=== PATIENT | male | born 1945 | race Caucasian/White ===

== ENCOUNTER 2018-07-20 14:35 | Inpatient (IN) ==
--- NOTE | 2018-07-20 17:42 | ED ---
HPI General Chief Complaint: Recheck/Abnormal Lab/Rx Stated Complaint: Doctor sent medical Time Seen by Provider: 07/20/18 16:50 Source: patient and family Mode of arrival: ambulatory Limitations: no limitations History of Present Illness HPI narrative: 73-year-old male presents for referral of abnormal CT and jaundice. He does not know the CT results. He states he has been having abdominal pain and bloating over the past couple weeks. He states that his urine is also been dark colored. He denies other specific complaints. complaint: abnormal lab Returns today for: called because of abnormal lab/test Symptoms since prior visit: worsening pain Context: called for abnormal lab result Associated symptoms: none Related Data Home Medications Medication Instructions Recorded Confirmed allopurinol 100 mg PO DAILY 07/20/18 07/20/18 aspirin [Aspirin Low Dose] 81 mg PO DAILY 07/20/18 07/20/18 indomethacin 25 mg PO DAILY PRN 07/20/18 07/20/18 lisinopril 40 mg PO DAILY 07/20/18 07/20/18 lovastatin 40 mg PO DAILY 07/20/18 07/20/18 Allergies Allergy/AdvReac Type Severity Reaction Status Date / Time Penicillins Allergy Generalized Verified 07/20/18 17:07 Rash Review of Systems ROS: all other systems reviewed are negative [facility] Medical History Medical History Gout (Acute) Hypercholesteremia (Acute) Hypertension (Acute) Surgical History Surgical History No history of previous surgery (Acute) Social History Social History Substance History: No History of Abuse Second Hand Smoke Exposure: No Smoking Status: Never smoker How Often Do You Have a Drink Containing Alcohol: 2 to 4 times a month Recent Travel in [facility] within the Last 8 Weeks: No Recent Out of Country Travel within the Last 8 Weeks: No Immunization History Tetanus Immunization: <5 Years Hx Influenza Vaccine This Season: No Exam Narrative Exam Narrative: GENERAL: 73 y/o female in no apparent distress SKIN: Focused skin assessment warm/dry. HEAD: Atraumatic. Normocephalic. EYES: Pupils equal and round. No scleral icterus. No injection or drainage. ENT: No nasal bleeding or discharge. Mucous membranes pink and moist. NECK: Trachea midline. No JVD. CARDIOVASCULAR: Regular rate and rhythm. RESPIRATORY: No accessory muscle use. Clear to auscultation. Breath sounds equal bilaterally. GASTROINTESTINAL: Abdomen soft, mild ttp diffusely, nondistended. MUSCULOSKELETAL: No obvious deformities. No clubbing. No cyanosis. NEUROLOGICAL: Awake and alert. Motor grossly within normal limits. Normal speech. PSYCHIATRIC: Appropriate mood and affect; insight and judgment normal. Course Reevaluation(s) Reevaluation #1: CT report shows intra-hepatic biliary duct dilatation with concern for possible biliary duct neoplasm and need for MRI, this was ordered and patient updated and will admit for further care Consultations Consultation #1: dr nj agrees to admit Initial Documented Vital Signs Temperature 97.9 F 07/20/18 14:43 Pulse Rate 72 07/20/18 14:43 Respiratory Rate 14 07/20/18 14:43 Blood Pressure 152/70 H 07/20/18 14:43 Pulse Oximetry 96 07/20/18 14:43 Last Documented Vital Signs Temperature 97.9 F 07/20/18 14:43 Pulse Rate 55 L 07/20/18 14:59 Respiratory Rate 16 07/20/18 14:59 Blood Pressure 165/74 H 07/20/18 14:59 Pulse Oximetry 99 07/20/18 14:59 Medical Decision Making [facility] Narrative Medical decision making narrative: will obtain ct report and recheck labs Medical Screen Exam Complete: Yes Emergency Medical Condition: Yes Differential Diagnosis Differential Diagnosis: Gallstone pancreatitis, biliary duct neoplasm, choledocholithiasis Lab Data Lab results reviewed: Yes I reviewed the patient's lab results. Result diagrams: 07/20/18 17:25 07/20/18 17:25 Lab Results 07/20/18 07/20/18 Range/Units 17:25 17:25 WBC 4.2 (4.0-11.0) th/mm3 RBC 4.09 L (4.50-5.90) mil/mm3 Hgb 13.9 (13.0-17.0) gm/dL Hct 41.5 (39.0-51.0) % MCV 101.3 H (80.0-100.0) fL MCH 34.1 H (27.0-34.0) pg MCHC 33.6 (32.0-36.0) % RDW 15.3 (11.6-17.2) % Plt Count 225 (150-450) th/mm3 MPV 9.4 (7.0-11.0) fL Neut % (Auto) 51.9 (16.0-70.0) % Lymph % (Auto) 33.9 (9.0-44.0) % Major % (Auto) 12.1 H (0.0-8.0) % Eos % (Auto) 1.5 (0.0-4.0) % Baso % (Auto) 0.6 (0.0-2.0) % Neut # (Auto) 2.2 (1.8-7.7) th/mm3 Lymph # (Auto) 1.4 (1.0-4.8) th/mm3 Major # (Auto) 0.5 (0.0-0.9) th/mm3 Eos # (Auto) 0.1 (0.0-0.4) th/mm3 Baso # (Auto) 0.0 (0.0-0.2) th/mm3 WBC Differential . Differential Comment Auto diff final Sodium 140 (136-145) meq/L Potassium 4.7 (3.5-5.1) meq/L Chloride 106 (98-107) meq/L Carbon Dioxide 24.1 (21.0-32.0) meq/L Anion Gap 10 (5-15) meq/L BUN 16 (7-18) mg/dL Creatinine 0.98 (0.60-1.30) mg/dL Estimated GFR 75 L (>89) mL/min Random Glucose 90 (74-106) mg/dL Calcium 8.6 (8.5-10.1) mg/dL Total Bilirubin 3.1 H (0.2-1.0) mg/dL AST 249 H (15-37) U/L ALT 507 H (12-78) U/L Alkaline Phosphatase 708 H (45-117) U/L Total Protein 7.6 (6.4-8.2) g/dL Albumin 3.7 (3.4-5.0) g/dL Lipase 239 (73-393) U/L Discharge Plan Discharge Disposition Patient Disposition: 30 Still Patient Discharge Condition Condition: Stable Discharge Details Diagnosis: Dilated intrahepatic bile duct, Elevated LFTs, Abdominal pain Physicians Team ED Provider: Neva Ocampo Primary Care Provider: Salvador Pedroza Attending Provider: Taiwo Nj Discharge Interventions Interventions: Vital Signs Last Done: 07/20/18 14:59 Status ED Status: Admitted Patient
[2018-07-20 17:53] LABS: Baso % (Auto) 0.6 % (0.0-2.0); Eos # (Auto) 0.1 th/mm3 (0.0-0.4); Eos % (Auto) 1.5 % (0.0-4.0); Hematocrit 41.5 % (39.0-51.0); Hemoglobin 13.9 gm/dL (13.0-17.0); Lymph # (Auto) 1.4 th/mm3 (1.0-4.8); Lymph % (Auto) 33.9 % (9.0-44.0); Mean Corpuscular HGB Conc 33.6 % (32.0-36.0); Mean Corpuscular Hemoglobin 34.1 pg (27.0-34.0); Mean Corpuscular Volume 101.3 fL (80.0-100.0); Mean Platelet Volume 9.4 fL (7.0-11.0); Mono # (Auto) 0.5 th/mm3 (0.0-0.9); Mono % (Auto) 12.1 % (0.0-8.0); Neut # (Auto) 2.2 th/mm3 (1.8-7.7); Neut % (Auto) 51.9 % (16.0-70.0); Platelet Count 225 th/mm3 (150-450); Red Blood Count 4.09 mil/mm3 (4.50-5.90); Red Cell Distribution Width 15.3 % (11.6-17.2); White Blood Count 4.2 th/mm3 (4.0-11.0)
[2018-07-20 18:21] LABS: Alkaline Phosphatase 708 U/L (45-117); Total Protein 7.6 g/dL (6.4-8.2)
[2018-07-20 18:24] LABS: Alanine Aminotransferase 507 U/L (12-78); Albumin 3.7 g/dL (3.4-5.0); Anion Gap 10 meq/L (5-15); Aspartate Aminotransferase 249 U/L (15-37); Blood Urea Nitrogen 16 mg/dL (7-18); Calcium 8.6 mg/dL (8.5-10.1); Carbon Dioxide 24.1 meq/L (21.0-32.0); Chloride 106 meq/L (98-107); Glomerular Filtration Rate 75 mL/min (>89); Glucose,Random 90 mg/dL (74-106); Lipase 239 U/L (73-393); Potassium 4.7 meq/L (3.5-5.1); Sodium 140 meq/L (136-145)
--- NOTE | 2018-07-20 18:29 | P.HPIM ---
History of Present Illness Primary Care Physician: Salvador Pedroza Chief Complaint: abdominal distension, abnormal abdominal CT History of Present Illness: Patient is a pleasant 73-year-old male who has been experiencing abdominal bloating and abdominal pain for the last 2 weeks. Pt had abnormal LFT panel 07/15/18 with Total Bilirubin 1.6, direct bilirubin 0.7 , alk phos 539, AST 421, and ALT 661. This prompted his PCP, Dr. Pedroza, to order CT A/P which was completed at [facility]. CT A/P showed intrahepatic biliary duct dilatation which terminates in the laz hepatis where there is soft tissue fullness. Further evaluation with MRI recommended to rule out biliary duct neoplasm. Atrophic left hepatic lobe also noted. Patient denied anorexia or weight loss. Patient denied fever or chills. Patient was sent to [facility]. [facility] PMH: - Basal Cell Carcinoma, s/p excision from pt's back - Gout - HTN - Hyperlipidemia PSH: - Excision of BCC from back FHX: - mother d/t esophageal CA - father d/t [place] SHX: - - no biologic children - former cigars smoker - etoh: 2-3 beers per week - denies illicit street drugs ALL: PCN - Diagnosis (1) Dilated intrahepatic bile duct (2) Elevated LFTs (3) Abdominal pain Inpatient Certification: I certify that the inpatient services were ordered in accordance with Medicare regulations governing the order. This includes certification that hospital inpatient services are reasonable and necessary and in the case of services not specified as inpatient-only under 42 CFR 419.22(n), that they are appropriately provided as inpatient services in accordance to with the 2-midnight benchmark under 43 CFR 412.3(e) Review of Systems Constitutional: Denies anorexia, Denies body ache(s), Denies chills, Denies fever(s), Denies night sweats, Denies poor appetite, Denies weight gain, Denies weight loss Eyes: Denies blind spots, Denies blurry vision, Denies change in vision, Denies double vision, Denies discharge, Denies loss of peripheral vision, Denies loss of vision, Denies other visual disturbances, Denies pain Ears, Nose, Mouth, and Throat: Denies bleeding gums, Denies difficulty swallowing, Denies dizziness, Denies headache(s), Denies hearing loss, Denies pain with swallowing, Denies poor balance, Denies ringing in the ears, Denies sore throat, Denies throat swelling, Denies tongue swelling Cardiovascular: Denies chest pain, Denies excessive sweating, Denies fainting, Denies fast heart rate, Denies generalized swelling, Denies irregular heart rhythm, Denies leg swelling, Denies lightheadedness, Denies slow heart rate Respiratory: Denies cough, Denies shortness of breath, Denies snoring, Denies wheezing Gastrointestinal: Reports abdominal pain, Reports bloating, Denies belching, Denies black, tarry stools, Denies bright, red blood in stools, Denies change in bowel habits, Denies change in stools, Denies coffee ground vomit, Denies constipation, Denies cramping, Denies difficulty swallowing, Denies heartburn, Denies incontinent of stools, Denies loose stools, Denies nausea, Denies pain with swallowing, Denies vomiting, Denies vomiting blood Genitourinary: Denies blood in urine, Denies difficulty urinating, Denies painful urination, Denies side pain, Denies frequent nighttime urination, Denies urinary frequency, Denies urinary hesitancy, Denies urinary incontinence , Denies urinary urgency Musculoskeletal: Denies abnormal walking, Denies back pain, Denies body aches, Denies decreased muscle mass, Denies joint pain, Denies joint swelling, Denies muscle weakness, Denies neck pain, Denies numbness, Denies stiffness, Denies tingling Skin/Breast: Denies bleeding lesions, Denies change in skin color, Denies changing lesions, Denies itching, Denies lesions, Denies new lesions, Denies non -healing lesions, Denies redness, Denies sensitivity to light, Denies rash, Denies skin pain, Denies skin swelling, Denies skin ulcer, Denies sores, Denies unusual bruising, Denies wounds, Denies yellowing of the skin Neurologic: Denies abnormal hearing, Denies abnormal movements, Denies abnormal speech, Denies abnormal walking, Denies behavioral changes, Denies burning sensations, Denies confusion, Denies dizziness, Denies fainting, Denies frequent falls, Denies headache(s), Denies lack of coordination, Denies localized weakness, Denies loss of vision, Denies memory loss, Denies numbness, Denies other visual disturbances, Denies radiating pain, Denies restless legs, Denies convulsions, Denies seizure-like activity, Denies sensory deficit, Denies tingling/numbness/burning sensations, Denies tremor(s), Denies unsteadiness, Denies weakness Psychiatric: Denies abnormal sleep pattern, Denies anxiety, Denies behavioral changes, Denies change in appetite, Denies confusion, Denies depression, Denies difficulty concentrating, Denies hearing things others do not hear, Denies irritability, Denies lack of enjoyment, Denies memory loss, Denies mood swings, Denies panic attacks, Denies paranoia, Denies seeing things others do not see, Denies thoughts of hurting/killing others, Denies thoughts of hurting/killing yourself Endocrine: Denies cold intolerance, Denies excessive sweating, Denies fatigue, Denies flushing, Denies heat intolerance, Denies increased hunger, Denies increased thirst, Denies increased urination, Denies rapid, pounding, or irregular heartbeat Hematologic/Lymphatic: Denies easy bleeding, Denies easy bruising, Denies enlarged lymph nodes Allergic/Immunologic: Denies hives, Denies lip swelling, Denies throat swelling , Denies wheezing PMFSH - History History Provided By: Patient - Medical History Medical History: Medical History (Last Reviewed 07/20/18 @ 17:38 by Neva Ocampo MD) Gout Hypercholesteremia Hypertension - Surgical History Surgical History: Surgical History (Last Reviewed 07/20/18 @ 17:38 by Neva Ocampo MD) No history of previous surgery - Tobacco History Second Hand Smoke Exposure: No Smoking Status: Never smoker - Alcohol History How Often Do You Have a Drink Containing Alcohol: 2 to 4 times a month - Substance Use History Substance History: No History of Abuse - Travel History Recent Travel in the [place] Within the Last 8 Weeks: No Recent Travel Out of the Country Within the Last 8 Weeks: No - Immunization History Tetanus Immunization: <5 Years Hx Influenza Vaccine This Season: No Medications and Allergies Active Medications: Active Medications Non-Formulary Medication (Lisinopril [Lisinopril]) 40 mg PO DAILY WOJCIECH Sodium Chloride (Ns Flush) 2 ml IV.FLUSH PRN PRN PRN Reason: FLUSH AFTER USING IV ACCESS Allergies Allergy/AdvReac Type Severity Reaction Status Date / Time Penicillins Allergy Generalized Verified 07/20/18 17:07 Rash Home Medications Medication Instructions Recorded Confirmed Type allopurinol 100 mg PO DAILY 07/20/18 07/20/18 History aspirin [Aspirin Low Dose] 81 mg PO DAILY 07/20/18 07/20/18 History indomethacin 25 mg PO DAILY PRN 07/20/18 07/20/18 History lisinopril 40 mg PO DAILY 07/20/18 07/20/18 History lovastatin 40 mg PO DAILY 07/20/18 07/20/18 History Exam Vital signs: Vital Signs 07/20/18 14:43 07/20/18 14:59 Temperature 97.9 F Pulse Rate 72 55 L Respiratory Rate 14 16 Blood Pressure 152/70 H 165/74 H Pulse Oximetry 96 99 Narrative: GENERAL: This is a well-nourished, well-developed patient, in no apparent distress. CARDIOVASCULAR: Regular rate and rhythm without murmurs, gallops, or rubs. RESPIRATORY: Clear to auscultation. Breath sounds equal bilaterally. No wheezes , rales, or rhonchi. GASTROINTESTINAL: Abdomen soft, non-tender, nondistended. Normal active bowel sounds MUSCULOSKELETAL: Extremities without clubbing, cyanosis, or edema. NEURO: Alert & Oriented x4 to person, place, time, situation. Moves all ext x4 Results - Labs CBC & Chem 7: 07/21/18 03:59 07/20/18 17:25 Labs: Liver Function 07/20/18 Range/Units 17:25 Total Bilirubin 3.1 H (0.2-1.0) mg/dL AST 249 H (15-37) U/L ALT 507 H (12-78) U/L Alkaline Phosphatase 708 H (45-117) U/L Albumin 3.7 (3.4-5.0) g/dL - Imaging Cholangiopancreatography MRI 07/20/18 00:00 1. Severe intrahepatic biliary ductal dilatation, primarily involving the left lobe. There is a focal cutoff of the intrahepatic ducts at the confluence in the laz hepatis region. Gap in the visualized biliary ducts in this region measures approximately 1 cm. This is suspicious for malignancy but no discrete mass is identified. 2. Common duct is normal diameter. No abnormal filling defects within the common duct. Caprini VTE Risk Assessment Caprini VTE Risk Assessment: Moderate/High Risk (score >= 2) Caprini Risk Assessment Model: Point Value = 1 Point Value = 2 Point Value = 3 Point Value = 5 Age 41-60 Minor surgery BMI > 25 kg/m2 Swollen legs Varicose veins or History of unexplained or recurrent spontaneous Oral contraceptives or hormone replacement Sepsis (< 1 month) Serious lung disease, including pneumonia (< 1 month) Abnormal pulmonary function Acute myocardial infarction Congestive heart failure (< 1 month) History of inflammatory bowel disease Medical patient at bed rest Age 61-74 Arthroscopic surgery Major open surgery (> 45 min) Laparoscopic surgery (> 45 min) Malignancy Confined to bed (> 72 hours) Immobilizing plaster cast Central venous access Age >= 75 History of VTE Family history of VTE Factor V Leiden Prothrombin [id number] Lupus anticoagulant Anticardiolipin antibodies Elevated serum homocysteine Heparin-induced thrombocytopenia Other congenital or acquired thrombophilia Stroke (< 1 month) Elective arthroplasty Hip, pelvis, or leg fracture Acute spinal cord injury (< 1 month) Prophylaxis Regimen: Total Risk Factor Score Risk Level Prophylaxis Regimen 0-1 Low Early ambulation 2 Moderate Order ONE of the following: *Sequential Compression Device (SCD) *Heparin 5000 units SQ BID 3-4 Higher Order ONE of the following medications: *Heparin 5000 units SQ TID *Enoxaparin/Lovenox 40 mg SQ daily (WT < 150 kg, CrCl > 30 mL/min) *Enoxaparin/Lovenox 30 mg SQ daily (WT < 150 kg, CrCl > 10-29 mL/min) *Enoxaparin/Lovenox 30 mg SQ BID (WT < 150 kg, CrCl > 30 mL/min) AND/OR *Sequential Compression Device (SCD) 5 or more Highest Order ONE of the following medications: *Heparin 5000 units SQ TID (Preferred with Epidurals) *Enoxaparin/Lovenox 40 mg SQ daily (WT < 150 kg, CrCl > 30 mL/min) *Enoxaparin/Lovenox 30 mg SQ daily (WT < 150 kg, CrCl > 10-29 mL/min) *Enoxaparin/Lovenox 30 mg SQ BID (WT < 150 kg, CrCl > 30 mL/min) AND *Sequential Compression Device (SCD) Assessment and Plan - Assessment (1) Dilated intrahepatic bile duct Code(s): K83.8 - Other specified diseases of biliary tract Status: Acute Plan: Patient is a pleasant 73-year-old male who has been experiencing abdominal bloating and abdominal pain for the last 2 weeks. Pt had abnormal LFT panel 07/15/18 with Total Bilirubin 1.6, direct bilirubin 0.7 , alk phos 539, AST 421, and ALT 661. This prompted his PCP, Dr. Pedroza, to order CT A/P which was completed at [facility]. Patient denied anorexia or weight loss. Patient denied fever or chills. Due to abnormal CT A/P patient was sent to [facility] for admission. CT A/P - intrahepatic biliary duct dilatation which terminates in the laz hepatis where there is soft tissue fullness. - Further evaluation with MRI recommended to rule out biliary duct neoplasm. - Atrophic left hepatic lobe also noted. MRCP (07/20/18) 1. Severe intrahepatic biliary ductal dilatation, primarily involving the left lobe. There is a focal cutoff of the intrahepatic ducts at the confluence in the laz hepatis region. Gap in the visualized biliary ducts in this region measures approximately 1 cm. This is suspicious for malignancy but no discrete mass is identified. 2. Common duct is normal diameter. No abnormal filling defects within the common duct. - Case d/w Gastroenterology, Dr. Doran. He will consult. - Pt will likely require ERCP to obtain biopsy of obstructing biliary process which is suspicious for cholangiocarcinoma. - DVT prophylaxis with SCDs - supportive care. 2) HTN - continue prinivil 3) Gout - continue allopurinol (2) Elevated LFTs Code(s): R94.5 - Abnormal results of liver function studies Status: Acute (3) Abdominal pain Code(s): R10.9 - Unspecified abdominal pain Status: Acute (3) Abdominal pain Qualifiers: Abdominal location: unspecified location Qualified Code(s): R10.9 - Unspecified abdominal pain
[2018-07-20] MEDS ORDERED: Bisacodyl 10 MG Supp RECTAL PRN (18:32)
[2018-07-20] MEDS ORDERED: Acetaminophen 325 MG Tablet PO PRN (18:32)
[2018-07-20] MEDS: Sod Chloride 0.9% Inj 1,000 ML IV.CONT SCH (18:53)
[2018-07-20] MEDS: Senna/Docusate Sodium 8.6/50 MG Tablet PO SCH (20:40)
--- NOTE | 2018-07-20 23:38 | MR ---
EXAM DATE: 07/20/2018 8:10 PM EDT AGE/SEX: 73 years / Male INDICATIONS: Abdominal pain. Jaundice. CLINICAL DATA: This is the patient's initial encounter. Patient reports that signs and symptoms have been present for 2 weeks and indicates a pain score of 4/10. MEDICAL/SURGICAL HISTORY: Hypertension. None. COMPARISON: TLI, CT ABDOMEN W AND W/O CONTRAST, 07/17/2018. . TECHNIQUE: Multiplanar, multisequence images of the abdomen were obtained without contrast including dedicated cholangiographic images. FINDINGS: Liver: Severe diffuse intrahepatic biliary ductal dilatation of the left lobe. A discrete mass is no t identified. Atrophic left lobe of the liver. Common Bile Duct: There is nonvisualization of the confluence of hepatic ducts at the laz hepatis with an approximately 1 cm gap between the visualized portion of the common duct and the visualized i ntrahepatic biliary ducts. Common duct diameter is 5 to 6 mm diffusely. No abnormal filling defects i dentified.. Gallbladder: Gallbladder is collapsed. No abnormal filling defects identified. Pancreas: The pancreas appears normal in signal with no focal parenchymal abnormalities. The pancrea tic duct is normal in caliber with no filling defects, or obstructing lesions identified. CONCLUSION: 1. Severe intrahepatic biliary ductal dilatation, primarily involving the left lobe. There is a foca l cutoff of the intrahepatic ducts at the confluence in the laz hepatis region. Gap in the visuali zed biliary ducts in this region measures approximately 1 cm. This is suspicious for malignancy but n o discrete mass is identified. 2. Common duct is normal diameter. No abnormal filling defects within the common duct. Electronically signed by: Bala Cisneros MD 07/20/2018 11:37 PM EDT
[2018-07-21] MEDS: Sod Chloride 0.9% Inj 1,000 ML IV.CONT SCH ×2 (05:59→15:54)
[2018-07-21 07:30] LABS: Baso % (Auto) 0.6 % (0.0-2.0); Eos # (Auto) 0.1 th/mm3 (0.0-0.4); Eos % (Auto) 1.9 % (0.0-4.0); Lymph # (Auto) 1.3 th/mm3 (1.0-4.8); Lymph % (Auto) 29.4 % (9.0-44.0); Mean Corpuscular HGB Conc 34.2 % (32.0-36.0); Mean Corpuscular Hemoglobin 34.3 pg (27.0-34.0); Mean Corpuscular Volume 100.4 fL (80.0-100.0); Mean Platelet Volume 9.9 fL (7.0-11.0); Mono # (Auto) 0.5 th/mm3 (0.0-0.9); Mono % (Auto) 12.2 % (0.0-8.0); Neut # (Auto) 2.5 th/mm3 (1.8-7.7); Neut % (Auto) 55.9 % (16.0-70.0); Platelet Count 192 th/mm3 (150-450); Red Blood Count 3.79 mil/mm3 (4.50-5.90); Red Cell Distribution Width 15.5 % (11.6-17.2); White Blood Count 4.4 th/mm3 (4.0-11.0)
[2018-07-21 07:58] LABS: Alanine Aminotransferase 456 U/L (12-78)
[2018-07-21 08:00] LABS: Alkaline Phosphatase 586 U/L (45-117); Total Protein 6.5 g/dL (6.4-8.2)
[2018-07-21 08:27] LABS: Albumin 3.2 g/dL (3.4-5.0); Anion Gap 8 meq/L (5-15); Aspartate Aminotransferase 282 U/L (15-37); Blood Urea Nitrogen 13 mg/dL (7-18); Calcium 8.5 mg/dL (8.5-10.1); Carbon Dioxide 21.8 meq/L (21.0-32.0); Chloride 110 meq/L (98-107); Glomerular Filtration Rate 84 mL/min (>89); Glucose,Random 79 mg/dL (74-106); Lipase 184 U/L (73-393); Potassium 4.3 meq/L (3.5-5.1); Sodium 140 meq/L (136-145)
[2018-07-21] MEDS: Lisinopril 20 MG Tablet PO SCH (09:25)
[2018-07-21] MEDS: Allopurinol 100 MG Tablet PO SCH (09:25)
[2018-07-21] MEDS: KCL 20 mEq/NACL 0.45% Inj 1,000 ML IV.CONT SCH ×2 (09:26→20:12)
[2018-07-21] MEDS: Senna/Docusate Sodium 8.6/50 MG Tablet PO SCH ×2 (09:26→20:12)
[2018-07-21] MEDS ORDERED: Succinylcholine Inj 100 MG/5 ML Syringe IV.PUSH ONE (11:25)
[2018-07-21] MEDS ORDERED: Phenylephrine/NS 1000 MCG/10ML Syringe IV.PUSH ONE (11:25)
[2018-07-21] MEDS ORDERED: Lidocaine PF 1% Inj 5 ML Syringe OTHER ONE (11:25)
--- NOTE | 2018-07-21 11:38 | P.CONGI ---
History of Present Illness Consult date: 07/21/18 Consult reason: Increased bilirubin, biliary ductal dilatation Chief complaint: Intrahepatic biliary duct dilatation, elevated History of Present Illness: This is a well-nourished 73-year-old male who came into the hospital on 2017 with symptoms of abdominal bloating and generalized abdominal pain for the past 3 weeks. Patient notes that his symptoms have worsened and he does note some tenderness in the mid abdomen and right upper quadrant. He did note some nausea during this period of time but no vomiting and had new onset of constipation for the past week. Patient has never seen gastroenterology and is never had a EGD or colonoscopy. Patient also notes some symptoms of dyspepsia off and on for the past year and noticed symptoms are worsened late at night. Aggregating factors could be related to his diet but pain was tolerable and functional so patient has been on no medications or had any workup. Patient noticed no obvious GI bleeding. Current labs show hemoglobin 13, bilirubin 3.1 , AST 249 ALT 507, alkaline phosphatase 708, lipase 239, and albumin 3.7. MRCP was performed on admission which showed severe intrahepatic biliary ductal dilatation primarily in the left lobe. There is a focal cut off the hepatic ducts in the portal hepatis region measuring up approximately 1 cm. This is suspicious for malignancy but no discrete mass is identified. Common bile duct normal diameter no abnormal filling defects. Gastroenterology was consulted to assist with these findings and a plan of care. <Jaycee Rose - Last Filed: 07/21/18 11:31> Review of Systems All other systems reviewed negative except as stated in HPI <Jaycee Rose - Last Filed: 07/21/18 11:31> PMFSH - History History Provided By: Patient - Medical History Medical History: Medical History (Last Reviewed 07/20/18 @ 17:38 by Neva Ocampo MD) Gout Hypercholesteremia Hypertension - Surgical History Surgical History: Surgical History (Last Reviewed 07/20/18 @ 17:38 by Neva Ocampo MD) No history of previous surgery - Tobacco History Second Hand Smoke Exposure: No Tobacco Use In Past 30 Days: No Smoking Status: Never smoker Tobacco Type: Cigars - Alcohol History How Often Do You Have a Drink Containing Alcohol: 2 to 4 times a month - Substance Use History Substance History: No History of Abuse - Travel History Recent Travel in the [facility] Within the Last 8 Weeks: No Recent Travel Out of the Country Within the Last 8 Weeks: No - Immunization History Tetanus Immunization: <5 Years Hx Influenza Vaccine This Season: No <Jaycee Rose - Last Filed: 07/21/18 11:31> - Medical History Medical History: Medical History (Last Reviewed 07/20/18 @ 17:38 by Neva Ocampo MD) Gout Hypercholesteremia Hypertension - Surgical History Surgical History: Surgical History (Last Reviewed 07/20/18 @ 17:38 by Neva Ocampo MD) No history of previous surgery <Kristan Doran - Last Filed: 07/21/18 16:05> Medications and Allergies Active Medications: Active Medications Acetaminophen (Tylenol) 650 mg PO Q4H PRN PRN Reason: Temp > 100.4 Al Hydroxide/Mg Hydroxide (Milk Of Magnesia Liq) 30 ml PO Q12H PRN PRN Reason: Mild Constipation Allopurinol (Zyloprim) 100 mg PO DAILY [facility] Last Admin: 07/21/18 09:25 Dose: 100 mg Bisacodyl (Dulcolax Supp) 10 mg RECTAL DAILY PRN PRN Reason: SEVERE CONSITIPATION Clonidine HCl (Catapres) 0.2 mg PO Q6H PRN PRN Reason: SBP>160, DBP>90 Enalaprilat (Vasotec Inj) 1.25 mg IV.PUSH Q6H PRN PRN Reason: SYS BP GREATER THAN 160 MMHG Sodium Chloride (Ns Inj) 1,000 mls @ 100 mls/hr IV.CONT .Q10H [facility] Last Infusion: 07/21/18 09:26 Dose: Infused Potassium Chloride/Sodium Chloride (Potassium Chlor 20 Meq/Nacl 0.45% Inj) 1, 000 mls @ 84 mls/hr IV.CONT .[id number] [facility] Last Admin: 07/21/18 09:26 Dose: 84 mls/hr Lactulose (Lactulose Liq) 30 ml PO DAILY PRN PRN Reason: SEVERE CONSITIPATION Lisinopril (Prinivil) 40 mg PO DAILY [facility] Last Admin: 07/21/18 09:25 Dose: 40 mg Ondansetron HCl (Zofran Inj) 4 mg IV.PUSH Q6H PRN PRN Reason: NAUSEA OR VOMITING Senna/Docusate Sodium (Rosalina-Colace) 1 tab PO BID [facility] Last Admin: 07/21/18 09:26 Dose: Not Given Sennosides (Senokot) 17.2 mg PO Q12H PRN PRN Reason: Moderate Constipation Sodium Chloride (Ns Flush) 2 ml IV.FLUSH PRN PRN PRN Reason: FLUSH AFTER USING IV ACCESS <Jaycee Rose M - Last Filed: 07/21/18 11:31> Active Medications: Active Medications Acetaminophen (Tylenol) 650 mg PO Q4H PRN PRN Reason: Temp > 100.4 Al Hydroxide/Mg Hydroxide (Milk Of Magnesia Liq) 30 ml PO Q12H PRN PRN Reason: Mild Constipation Allopurinol (Zyloprim) 100 mg PO DAILY [facility] Last Admin: 07/21/18 09:25 Dose: 100 mg Bisacodyl (Dulcolax Supp) 10 mg RECTAL DAILY PRN PRN Reason: SEVERE CONSITIPATION Clonidine HCl (Catapres) 0.2 mg PO Q6H PRN PRN Reason: SBP>160, DBP>90 Enalaprilat (Vasotec Inj) 1.25 mg IV.PUSH Q6H PRN PRN Reason: SYS BP GREATER THAN 160 MMHG Sodium Chloride (Ns Inj) 1,000 mls @ 100 mls/hr IV.CONT .Q10H [facility] Last Admin: 07/21/18 15:54 Dose: Not Given Potassium Chloride/Sodium Chloride (Potassium Chlor 20 Meq/Nacl 0.45% Inj) 1, 000 mls @ 84 mls/hr IV.CONT .[id number] [facility] Last Admin: 07/21/18 09:26 Dose: 84 mls/hr Lactulose (Lactulose Liq) 30 ml PO DAILY PRN PRN Reason: SEVERE CONSITIPATION Lisinopril (Prinivil) 40 mg PO DAILY [facility] Last Admin: 07/21/18 09:25 Dose: 40 mg Ondansetron HCl (Zofran Inj) 4 mg IV.PUSH Q6H PRN PRN Reason: NAUSEA OR VOMITING Senna/Docusate Sodium (Rosalina-Colace) 1 tab PO BID [facility] Last Admin: 07/21/18 09:26 Dose: Not Given Sennosides (Senokot) 17.2 mg PO Q12H PRN PRN Reason: Moderate Constipation Sodium Chloride (Ns Flush) 2 ml IV.FLUSH PRN PRN PRN Reason: FLUSH AFTER USING IV ACCESS <EspinozaKristan jennings - Last Filed: 07/21/18 16:05> Allergies Allergy/AdvReac Type Severity Reaction Status Date / Time Penicillins Allergy Generalized Verified 07/20/18 17:07 Rash Home Medications Medication Instructions Recorded Confirmed Type allopurinol 100 mg PO DAILY 07/20/18 07/20/18 History aspirin [Aspirin Low Dose] 81 mg PO DAILY 07/20/18 07/20/18 History indomethacin 25 mg PO DAILY PRN 07/20/18 07/20/18 History lisinopril 40 mg PO DAILY 07/20/18 07/20/18 History lovastatin 40 mg PO DAILY 07/20/18 07/20/18 History Exam Vital signs: Vital Signs 07/20/18 14:43 07/20/18 14:59 07/20/18 18:54 Temperature 97.9 F Pulse Rate 72 55 L 58 L Respiratory Rate 14 16 18 Blood Pressure 152/70 H 165/74 H 144/66 H Pulse Oximetry 96 99 07/20/18 20:00 07/21/18 00:00 07/21/18 08:00 Temperature 97.6 F 97.7 F 97.4 F L Pulse Rate 60 51 L 59 L Respiratory Rate 18 18 19 Blood Pressure 137/72 125/64 139/68 Pulse Oximetry 96 97 97 Intake & Output 07/20/18 07/21/18 07/21/18 18:59 06:59 18:59 Intake Total 1100 / 1100 343 / 343 Balance 1100 / 1100 343 / 343 Weight 79.379 kg 81 kg Intake: IV 1100 / 1100 343 / 343 NS Inj 1,000 ML @ 100 mls/hr IV 1100 / 1100 343 / 343 .CONT .Q10H [facility] Rx#:[id number] Other: # Voids 1 Date of Last Bowel Movement 07/20/18 Weight On Admission 79.746 kg - Constitutional mild distress, average body habitus, cooperative - Routine HEENT Exam Head: Present: normocephalic ENT: Present: mucous membranes moist - Routine Neck Exam Present: supple - Routine Respiratory Exam Present: accessory muscle use (No obvious shortness of breath or wheezing) - Routine Cardiovascular Exam Present: S1, S2 - Routine Abdominal Exam Present: distended (Mild with some generalized tenderness in the mid and right upper quadrant) - Routine Skin Exam Present: intact, jaundice <Jaycee Rose - Last Filed: 07/21/18 11:31> Vital signs: Vital Signs 07/20/18 18:54 07/20/18 20:00 07/21/18 00:00 Temperature 97.6 F 97.7 F Pulse Rate 58 L 60 51 L Respiratory Rate 18 18 18 Blood Pressure 144/66 H 137/72 125/64 Pulse Oximetry 96 97 07/21/18 08:00 07/21/18 12:37 07/21/18 12:45 Temperature 97.4 F L 98.0 F Pulse Rate 59 L 77 77 Respiratory Rate 19 14 14 Blood Pressure 139/68 151/72 H 139/70 Pulse Oximetry 97 97 97 07/21/18 13:00 07/21/18 13:15 07/21/18 14:02 Temperature 97.8 F 97.7 F Pulse Rate 65 62 62 Respiratory Rate 19 21 17 Blood Pressure 136/65 141/69 H 170/72 H Pulse Oximetry 98 98 99 Intake & Output 07/20/18 07/21/18 07/21/18 18:59 06:59 18:59 Intake Total 1100 / 1100 1443 / 1443 Balance 1100 / 1100 1443 / 1443 Weight 79.379 kg 81 kg Intake: IV 1100 / 1100 443 / 443 NS Inj 1,000 ML @ 100 mls/hr IV 1100 / 1100 343 / 343 .CONT .Q10H [facility] Rx#:[id number] Levaquin 500 mg Premix Inj 500 100 / 100 mg In 100 ml @ 0 mls/hr IV.SIG .STK-MED ONE Rx#:[id number] Anesthesia Amount 1000 / 1000 Other: # Voids 1 Date of Last Bowel Movement 07/20/18 Weight On Admission 79.746 kg <Kristan Doran - Last Filed: 07/21/18 16:05> Results - Labs CBC & Chem 7: 07/21/18 03:59 07/21/18 03:59 Labs: Laboratory Results - last 24 hr 07/20/18 07/20/18 07/21/18 17:25 17:25 03:59 WBC 4.2 4.4 RBC 4.09 L 3.79 L Hgb 13.9 13.0 Hct 41.5 38.0 L MCV 101.3 H 100.4 H MCH 34.1 H 34.3 H MCHC 33.6 34.2 RDW 15.3 15.5 Plt Count 225 192 MPV 9.4 9.9 Neut % (Auto) 51.9 55.9 Lymph % (Auto) 33.9 29.4 [place] % (Auto) 12.1 H 12.2 H Eos % (Auto) 1.5 1.9 Baso % (Auto) 0.6 0.6 Neut # (Auto) 2.2 2.5 Lymph # (Auto) 1.4 1.3 [place] # (Auto) 0.5 0.5 Eos # (Auto) 0.1 0.1 Baso # (Auto) 0.0 0.0 WBC Differential . . Differential Comment Auto diff final Auto diff final Sodium 140 Potassium 4.7 Chloride 106 Carbon Dioxide 24.1 Anion Gap 10 BUN 16 Creatinine 0.98 Estimated GFR 75 L Random Glucose 90 Calcium 8.6 Magnesium Total Bilirubin 3.1 H AST 249 H ALT 507 H Alkaline Phosphatase 708 H Total Protein 7.6 Albumin 3.7 Lipase 239 07/21/18 03:59 WBC RBC Hgb Hct MCV MCH MCHC RDW Plt Count MPV Neut % (Auto) Lymph % (Auto) [place] % (Auto) Eos % (Auto) Baso % (Auto) Neut # (Auto) Lymph # (Auto) [place] # (Auto) Eos # (Auto) Baso # (Auto) WBC Differential Differential Comment Sodium 140 Potassium 4.3 Chloride 110 H Carbon Dioxide 21.8 Anion Gap 8 BUN 13 Creatinine 0.89 Estimated GFR 84 L Random Glucose 79 Calcium 8.5 Magnesium 2.0 Total Bilirubin 4.3 H AST 282 H ALT 456 H Alkaline Phosphatase 586 H Total Protein 6.5 D Albumin 3.2 L Lipase 184 - Imaging Impressions Cholangiopancreatography MRI 07/20/18 00:00 CONCLUSION: 1. Severe intrahepatic biliary ductal dilatation, primarily involving the left lobe. There is a focal cutoff of the intrahepatic ducts at the confluence in the laz hepatis region. Gap in the visualized biliary ducts in this region measures approximately 1 cm. This is suspicious for malignancy but no discrete mass is identified. 2. Common duct is normal diameter. No abnormal filling defects within the common duct. <Milton,Jaycee M - Last Filed: 07/21/18 11:31> - Labs CBC & Chem 7: 07/21/18 03:59 07/21/18 03:59 Labs: Laboratory Results - last 24 hr 07/20/18 07/20/18 07/21/18 17:25 17:25 03:59 WBC 4.2 4.4 RBC 4.09 L 3.79 L Hgb 13.9 13.0 Hct 41.5 38.0 L MCV 101.3 H 100.4 H MCH 34.1 H 34.3 H MCHC 33.6 34.2 RDW 15.3 15.5 Plt Count 225 192 MPV 9.4 9.9 Neut % (Auto) 51.9 55.9 Lymph % (Auto) 33.9 29.4 [place] % (Auto) 12.1 H 12.2 H Eos % (Auto) 1.5 1.9 Baso % (Auto) 0.6 0.6 Neut # (Auto) 2.2 2.5 Lymph # (Auto) 1.4 1.3 [place] # (Auto) 0.5 0.5 Eos # (Auto) 0.1 0.1 Baso # (Auto) 0.0 0.0 WBC Differential . . Differential Comment Auto diff final Auto diff final Sodium 140 Potassium 4.7 Chloride 106 Carbon Dioxide 24.1 Anion Gap 10 BUN 16 Creatinine 0.98 Estimated GFR 75 L Random Glucose 90 Calcium 8.6 Magnesium Total Bilirubin 3.1 H AST 249 H ALT 507 H Alkaline Phosphatase 708 H Total Protein 7.6 Albumin 3.7 Lipase 239 Tumor Marker AFP 07/21/18 07/21/18 03:59 10:10 WBC RBC Hgb Hct MCV MCH MCHC RDW Plt Count MPV Neut % (Auto) Lymph % (Auto) [place] % (Auto) Eos % (Auto) Baso % (Auto) Neut # (Auto) Lymph # (Auto) [place] # (Auto) Eos # (Auto) Baso # (Auto) WBC Differential Differential Comment Sodium 140 Potassium 4.3 Chloride 110 H Carbon Dioxide 21.8 Anion Gap 8 BUN 13 Creatinine 0.89 Estimated GFR 84 L Random Glucose 79 Calcium 8.5 Magnesium 2.0 Total Bilirubin 4.3 H AST 282 H ALT 456 H Alkaline Phosphatase 586 H Total Protein 6.5 D Albumin 3.2 L Lipase 184 Tumor Marker AFP 4.8 - Imaging Impressions Cholangiopancreatography MRI 07/20/18 00:00 CONCLUSION: 1. Severe intrahepatic biliary ductal dilatation, primarily involving the left lobe. There is a focal cutoff of the intrahepatic ducts at the confluence in the laz hepatis region. Gap in the visualized biliary ducts in this region measures approximately 1 cm. This is suspicious for malignancy but no discrete mass is identified. 2. Common duct is normal diameter. No abnormal filling defects within the common duct. GI Procedure 07/21/18 00:00 CONCLUSION: Successful placement of an internal biliary stent. <Kristan Doran - Last Filed: 07/21/18 16:05> Assessment and Plan - Plan well-nourished 73-year-old male who came into the hospital on 07/20/2018 with symptoms of abdominal bloating and generalized abdominal pain for the past 3 weeks. Patient notes that his symptoms have worsened and he does note some tenderness in the mid abdomen and right upper quadrant. He did note some nausea during this period of time but no vomiting and had new onset of constipation for the past week. Patient has never seen gastroenterology and is never had a EGD or colonoscopy. Patient also notes some symptoms of dyspepsia off and on for the past year and noticed symptoms are worsened late at night. Aggregating factors could be related to his diet but pain was tolerable and functional so patient has been on no medications or had any workup. Patient noticed no obvious GI bleeding. Current labs show hemoglobin 13, bilirubin 3.1 , AST 249 ALT 507, alkaline phosphatase 708, lipase 239, and albumin 3.7. MRCP was performed on admission which showed severe intrahepatic biliary ductal dilatation primarily in the left lobe. There is a focal cut off the hepatic ducts in the portal hepatis region measuring up approximately 1 cm. This is suspicious for malignancy but no discrete mass is identified. Common bile duct normal diameter no abnormal filling defects. Gastroenterology was consulted to assist with these findings and a plan of care. Plan N.p.o. for now Consent for ERCP to be done today approximately 1230 Pain management per attending Continue IV hydration Monitor labs Further recommendations to follow Patient was seen per myself and Dr. 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 ERCP today. Thank you The exam, history, and the medical decision-making described in the above note were completed with the assistance of the mid-level provider. I reviewed and agree with the findings presented. I attest that I had a [id number] encounter with the patient on the same day, and personally performed and documented my assessment and findings in the medical record. <Kristan Doran - Last Filed: 07/21/18 16:05>
[2018-07-21] MEDS ORDERED: Ketamine Inj 500 MG/10 ML Vial ONE (12:08)
--- NOTE | 2018-07-21 12:33 | GIPROC ---
[facility] [address] [facility]. [facility], [address] ERCP PROCEDURE REPORT EXAM DATE: 07/21/2018 PATIENT NAME: Apollo De Los Santos MR #: [id number] BIRTHDATE: 1945 ATTENDING: Kristan Doran MD ORDER #: [id number] FISCAL SPECIALIST: Ana Stanton and Shelia Cho RN STATUS: inpatient INDICATIONS: The patient is a 73 yr old male here for an ERCP due to abdominal pain of suspected biliary origin and abnormal MRCP PROCEDURE PERFORMED: ERCP with stent placement ERCP with biopsy MEDICATIONS: None and Per Anesthesia. CONSENT: The patient understands the risks and benefits of the procedure and understands that these risks include, but are not limited to: sedation, allergic reaction, infection, perforation and/or bleeding. Alternative means of evaluation and treatment include, among others: physical exam, x-rays, and/or surgical intervention. The patient elects to proceed with this endoscopic procedure. medical equipment was checked for proper function. Hand hygiene and appropriate measures for infection prevention was taken. After the risks, benefits and alternatives of the procedure were thoroughly explained, Informed was verified, confirmed and timeout was successfully executed by the treatment team. With the patient in left semi-prone position, medications were administered intravenously.The Pentax [id number] was passed from the mouth into the esophagus and further advanced from the esophagus into the stomach. From stomach scope was directed to the second portion of the duodenum. Major papilla was aligned with the duodenoscope. The scope position was confirmed fluoroscopically. Rest of the findings/therapeutics are given below. The scope was then completely withdrawn from the patient and the procedure completed. The pulse, BP, and O2 saturation were monitored and documented by the physician and the nursing staff throughout the entire procedure. The patient was cared for as planned according to standard protocol. The patient was then discharged to recovery in stable condition and with appropriate post procedure care. The ampulla was located the second portion of the duodenum, in a position more proximal than normal. The ampulla appeared normal. Small filling defect distal CBD. Large Gall bladder. Intrahepatic ducts not opacified. ? klatskins tumor. Brushings obtaned and 8 fr x 12 cm stent placed in the Left IHD. Pancreatic dust normal. ADVERSE EVENT: There were no complications. IMPRESSIONS: 1. Normal appearing ampulla 2. Small filling defect distal CBD. Large Gall bladder. Intrahepatic ducts not opacified. ? klatskins tumor. Brushings obtaned and 8 fr x 12 cm stent placed in the Left IHD 3. Pancreatic dust normal RECOMMENDATIONS: 1. Antibiotics 2. Liver enzymes 3. Levoquin 500mg x 1 ivp. IF LFTs still elevated consider PTC and R IHD drainage REPEAT EXAM: Return 1 month ERCP Kristan Doran MD eSigned: Kristan Doran MD 07/21/2018 12:33 PM cc:
[2018-07-21] MEDS ORDERED: Levofloxacin 500 mg Premix Inj 500 MG/100 ML PIGGYBACK IV.SIG ONE ×2 (12:51→13:00)
--- NOTE | 2018-07-21 13:15 | FL ---
EXAM DATE: 07/21/2018 12:00 AM EDT AGE/SEX: 73 years / Male INDICATIONS: Abdominal pain, stent placement and biopsy. CLINICAL DATA: This is the patient's initial encounter. Patient reports that signs and symptoms have been present for 1 day and indicates a pain score of Nonresponsive. MEDICAL/SURGICAL HISTORY: Hypertension. None. COMPARISON: No prior exams available for comparison. FINDINGS: An ERCP was performed by the ordering physician. The images demonstrate narrowing of the distal comm on bile duct with some debris in the duct. The final images demonstrate a well placed internal biliar y stent. CONCLUSION: Successful placement of an internal biliary stent. Electronically signed by: Juan Stover MD 07/21/2018 1:13 PM EDT
--- NOTE | 2018-07-21 16:50 | P.PNIM ---
Subjective Interval history: Patient sitting up in chair talking with wide at bedside reports throat discomfort after procedure which is resolving also reports concern regarding pending pathology Physical Exam Vital signs: Vital Signs 07/20/18 18:54 07/20/18 20:00 07/21/18 00:00 Temperature 97.6 F 97.7 F Pulse Rate 58 L 60 51 L Respiratory Rate 18 18 18 Blood Pressure 144/66 H 137/72 125/64 Pulse Oximetry 96 97 07/21/18 08:00 07/21/18 12:37 07/21/18 12:45 Temperature 97.4 F L 98.0 F Pulse Rate 59 L 77 77 Respiratory Rate 19 14 14 Blood Pressure 139/68 151/72 H 139/70 Pulse Oximetry 97 97 97 07/21/18 13:00 07/21/18 13:15 07/21/18 14:02 Temperature 97.8 F 97.7 F Pulse Rate 65 62 62 Respiratory Rate 19 21 17 Blood Pressure 136/65 141/69 H 170/72 H Pulse Oximetry 98 98 99 Intake & Output 07/20/18 07/21/18 07/21/18 18:59 06:59 18:59 Intake Total 1100 / 1100 1443 / 1443 Balance 1100 / 1100 1443 / 1443 Weight 79.379 kg 81 kg Intake: IV 1100 / 1100 443 / 443 NS Inj 1,000 ML @ 100 mls/hr IV 1100 / 1100 343 / 343 .CONT .Q10H [facility] Rx#:[id number] Levaquin 500 mg Premix Inj 500 100 / 100 mg In 100 ml @ 0 mls/hr IV.SIG .STK-MED ONE Rx#:[id number] Anesthesia Amount 1000 / 1000 Other: # Voids 1 Date of Last Bowel Movement 07/20/18 Weight On Admission 79.746 kg Narrative: GENERAL: This is a well-nourished, well-developed patient, in no apparent distress. CARDIOVASCULAR: Regular rate and rhythm RESPIRATORY: Clear to auscultation. Breath sounds equal bilaterally. GASTROINTESTINAL: Abdomen soft, non-tender, nondistended. Normal active bowel sounds MUSCULOSKELETAL: Extremities without clubbing, cyanosis, or edema. NEURO: Alert & Oriented x4 to person, place, time, situation. Moves all ext x4 Results - Labs CBC & Chem 7: 07/21/18 03:59 07/24/18 04:00 Laboratory Results - last 24 hr 07/20/18 07/20/18 07/21/18 17:25 17:25 03:59 WBC 4.2 4.4 RBC 4.09 L 3.79 L Hgb 13.9 13.0 Hct 41.5 38.0 L MCV 101.3 H 100.4 H MCH 34.1 H 34.3 H MCHC 33.6 34.2 RDW 15.3 15.5 Plt Count 225 192 MPV 9.4 9.9 Neut % (Auto) 51.9 55.9 Lymph % (Auto) 33.9 29.4 [place] % (Auto) 12.1 H 12.2 H Eos % (Auto) 1.5 1.9 Baso % (Auto) 0.6 0.6 Neut # (Auto) 2.2 2.5 Lymph # (Auto) 1.4 1.3 [place] # (Auto) 0.5 0.5 Eos # (Auto) 0.1 0.1 Baso # (Auto) 0.0 0.0 WBC Differential . . Differential Comment Auto diff final Auto diff final Sodium 140 Potassium 4.7 Chloride 106 Carbon Dioxide 24.1 Anion Gap 10 BUN 16 Creatinine 0.98 Estimated GFR 75 L Random Glucose 90 Calcium 8.6 Magnesium Total Bilirubin 3.1 H AST 249 H ALT 507 H Alkaline Phosphatase 708 H Total Protein 7.6 Albumin 3.7 Lipase 239 Tumor Marker AFP CA 19-9 Antigen 07/21/18 07/21/18 07/21/18 03:59 10:10 10:10 WBC RBC Hgb Hct MCV MCH MCHC RDW Plt Count MPV Neut % (Auto) Lymph % (Auto) [place] % (Auto) Eos % (Auto) Baso % (Auto) Neut # (Auto) Lymph # (Auto) [place] # (Auto) Eos # (Auto) Baso # (Auto) WBC Differential Differential Comment Sodium 140 Potassium 4.3 Chloride 110 H Carbon Dioxide 21.8 Anion Gap 8 BUN 13 Creatinine 0.89 Estimated GFR 84 L Random Glucose 79 Calcium 8.5 Magnesium 2.0 Total Bilirubin 4.3 H AST 282 H ALT 456 H Alkaline Phosphatase 586 H Total Protein 6.5 D Albumin 3.2 L Lipase 184 Tumor Marker AFP 4.8 CA 19-9 Antigen 152.6 H - Imaging Impressions Cholangiopancreatography MRI 07/20/18 00:00 CONCLUSION: 1. Severe intrahepatic biliary ductal dilatation, primarily involving the left lobe. There is a focal cutoff of the intrahepatic ducts at the confluence in the laz hepatis region. Gap in the visualized biliary ducts in this region measures approximately 1 cm. This is suspicious for malignancy but no discrete mass is identified. 2. Common duct is normal diameter. No abnormal filling defects within the common duct. GI Procedure 07/21/18 00:00 CONCLUSION: Successful placement of an internal biliary stent. Assessment and Plan - Assessment (1) Dilated intrahepatic bile duct Code(s): K83.8 - Other specified diseases of biliary tract Status: Acute Plan: Patient is a pleasant 73-year-old male who has been experiencing abdominal bloating and abdominal pain for the last 2 weeks. Pt had abnormal LFT panel 07/15/18 with Total Bilirubin 1.6, direct bilirubin 0.7 , alk phos 539, AST 421, and ALT 661. This prompted his PCP, Dr. Pedroza, to order CT A/P which was completed at [facility]. Patient denied anorexia or weight loss. Patient denied fever or chills. Due to abnormal CT A/P patient was sent to [place] [facility] for admission. CT A/P - intrahepatic biliary duct dilatation which terminates in the laz hepatis where there is soft tissue fullness. - Further evaluation with MRI recommended to rule out biliary duct neoplasm. - Atrophic left hepatic lobe also noted. MRCP (07/20/18) 1. Severe intrahepatic biliary ductal dilatation, primarily involving the left lobe. There is a focal cutoff of the intrahepatic ducts at the confluence in the laz hepatis region. Gap in the visualized biliary ducts in this region measures approximately 1 cm. This is suspicious for malignancy but no discrete mass is identified. 2. Common duct is normal diameter. No abnormal filling defects within the common duct. - Case d/w Gastroenterology, Dr. Doran 07/21 - S/P ERCP 1. Normal appearing ampulla 2. Small filling defect distal CBD. Large Gall bladder. Intrahepatic ducts not opacified. ? klatskins tumor. Brushings obtaned and 8 fr x 12 cm stent placed in the Left IHD 3. Pancreatic dust normal RECOMMENDATIONS: 1. Antibiotics 2. Liver enzymes 3. Levoquin 500mg x 1 ivp. IF LFTs still elevated consider PTC and R IHD drainage REPEAT EXAM: Return 1 month ERCP - pathology pending, consult to oncology - s/p Successful placement of an internal biliary stent with IR Dr. Stover 07/21 - recheck CMP in AM, discussed with Dr. Doran patient may require percutaneous drain - DVT prophylaxis with SCDs - supportive care. 2) HTN - continue Prinivil 3) Gout - continue allopurinol (2) Elevated LFTs Code(s): R94.5 - Abnormal results of liver function studies Status: Acute (3) Abdominal pain Code(s): R10.9 - Unspecified abdominal pain Status: Acute - Attending Attestation Patient examined. Assessment and plan formulated with Jimena Waller PA-C. I agree with the above. (3) Abdominal pain Qualifiers: Abdominal location: unspecified location Qualified Code(s): R10.9 - Unspecified abdominal pain
--- NOTE | 2018-07-21 17:35 | ECG ---
Date Performed: 07/21/2018 Time Performed: 10:45:24 PTAGE: 73 years EKG: Sinus rhythm MARKED LEFT AXIS DEVIATION ABNORMAL ECG NO PREVIOUS TRACING DOCTOR: Damion Martinez Interpretating Date/Time 07/21/2018 17:32:57
--- NOTE | 2018-07-21 21:55 | MB ---
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 HISTORY OF PRESENT ILLNESS: The patient is a 73-year-old male who presented to the hospital with complaint of increased abdominal bloating and pain for the last 2 weeks. He stated the pain has been constant. He went to see Dr. Pedroza and lab work showed elevated liver enzymes. He was sent for a CT scan, which show intrahepatic biliary dilatation. He was then told to come to the hospital. He denies any fever or chills. He denies any night sweats. He has no significant weight loss. He denies any chest pain. He has no shortness of breath or cough. He has no nausea or vomiting. Denies any diarrhea. He has been having constipation. He stated the urine color has been darker. 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 PAST MEDICAL HISTORY: 1. Basal cell carcinoma. 2. Gout. 3. Hypertension. 4. Hyperlipidemia. PAST SURGICAL HISTORY: Excision of basal cell carcinoma. FAMILY HISTORY: Mother of esophageal cancer. Two sisters, one sister had autoimmune disease. He has no children. SOCIAL HISTORY: He quit cigar in the 80s. He drinks occasionally. ALLERGIES: PENICILLIN. CURRENT MEDICATIONS: 1. Allopurinol. 2. Lisinopril. 3. Rosalina-Colace. REVIEW OF SYSTEMS: CONSTITUTIONAL: As above. EYES: Negative. ENT: Negative. CARDIOVASCULAR: No chest pressure or palpitation. RESPIRATORY: No shortness of breath, cough. GASTROINTESTINAL: As above. GENITOURINARY: Negative. MUSCULOSKELETAL: Negative. HEMATOLOGIC: Negative. ENDOCRINE: Negative. DERMATOLOGIC: Negative. PSYCHIATRIC: Negative. PHYSICAL EXAMINATION: VITAL SIGNS: Temperature 97, blood pressure 136/74, O2 saturation 97%. GENERAL: He is alert, oriented x3, in no acute distress, jaundiced. HEENT: Atraumatic, normocephalic. Pupils are equal, round, reactive to light. Oropharynx: Dry mucosa. Positive scleral icterus. NECK: No thyromegaly. LYMPHATIC: No palpable cervical, clavicular, axillary or inguinal lymph nodes. CARDIOVASCULAR: Regular S1, S2. No murmur. LUNGS: Clear to auscultation bilaterally. No wheeze or rhonchi. ABDOMEN: Soft, discomfort in the upper abdomen. No rebound, no rigidity. Positive bowel sounds. EXTREMITIES: No cyanosis, clubbing or edema. BACK: No paravertebral tenderness. SKIN: Jaundiced. NEUROLOGIC: Nonfocal. LABORATORY DATA: I have reviewed his lab work from 07/20/2018 and 07/21/2018. ASSESSMENT: 1. Obstructive jaundice worrisome for Klatskin tumor. He has had abdominal discomfort for 2 weeks. He was to have noted abnormal liver function tests. CT of the abdomen and pelvis showed intrahepatic biliary dilatation. On presentation, MRCP showed severe intrahepatic biliary ductal dilatation primarily involving the left lobe. There is a focal cutoff of intrahepatic duct at the confluence in the laz hepatis region. There is no discrete mass identified. He underwent an ERCP this afternoon with a biliary stent placement. The ampulla appeared normal, but there is a small filling defect in the distal common bile duct. The intrahepatic ducts were not opacified. Brushing was obtained and cytology is pending at this point. The patient's tumor marker CA 19-9 was elevated at 152. Alpha fetoprotein is normal. 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 Reviewed radiologic findings and probable diagnosis with the patient. He has many questions today, which I tried to answer. We are waiting for cytology, and if it is negative, may have to consider doing an endoscopic ultrasound to see if there is any lesion that could be biopsied. I am also going to get a CT of the chest for staging and check CEA level. 2. History of gout. 3. Hypertension. 4. Hyperlipidemia. RECOMMENDATIONS: 1. Extensive discussion with the patient as above. 2. Await cytology result. 3. CT of the chest and check tumor markers. Thank you Dr. Nj for asking me to see this patient. MD PEYMAN Castelan/naveed , 07:51 PM , 08:02 PM YONATAN
[2018-07-22] MEDS: KCL 20 mEq/NACL 0.45% Inj 1,000 ML IV.CONT SCH ×4 (00:11→21:09)
[2018-07-22] MEDS: Sod Chloride 0.9% Inj 1,000 ML IV.CONT SCH ×3 (00:13→21:09)
--- NOTE | 2018-07-22 00:29 | CT ---
EXAM DATE: 07/21/2018 9:23 PM EDT AGE/SEX: 73 years / Male INDICATIONS: Chest pain. CLINICAL DATA: This is the patient's initial encounter. Patient reports that signs and symptoms have been present for 1 day and indicates a pain score of 3/10. MEDICAL/SURGICAL HISTORY: Hypertension. Gout. None. RADIATION DOSE: 13.07 CTDI (mGy) COMPARISON: No prior exams available for comparison. TECHNIQUE: Multiple contiguous axial images were obtained through the chest without contrast. Image s were obtained in suspended respiration using multiple row detector helical technique. Using automa chapo exposure control and adjustment of the mA and/or kV according to patient size, radiation dose was kept as low as reasonably achievable to obtain optimal diagnostic quality images. DICOM format imag e data is available electronically for review and comparison. FINDINGS: Lungs: 3 mm nodular density in the right mid lung on image #24. 4 mm nodular density in the right mi dlung on image #36. 4 mm nodular density in the right midlung on image #37. 5 mm nodular density in t he right lower lobe on image #43. 6 mm nodular density in the right lower lobe on image #40. Mild ate lectasis at the dependent portions of the lungs. Mediastinum: Coronary artery calcification. No enlarged lymph nodes. Aortic calcification. Aortic di ameter within normal limits. Pleurae: No evidence of focal thickening or pleural effusion. Axillae: Unremarkable. Bony Structures: Unremarkable. Miscellaneous: The examination was extended to include the upper abdomen, and both adrenal glands ar e normal in size and configuration. CONCLUSION: 1. Multiple subcentimeter nodular densities in the right lung. Recommend six-month follow-up noncont rast chest CT. 2. Coronary artery calcification. 3. No other acute findings in the chest. Electronically signed by: Bala Cisneros MD 07/22/2018 12:28 AM EDT
[2018-07-22 05:15] LABS: Albumin 3.5 g/dL (3.4-5.0); Anion Gap 10 meq/L (5-15); Aspartate Aminotransferase 289 U/L (15-37); Blood Urea Nitrogen 11 mg/dL (7-18); Calcium 8.7 mg/dL (8.5-10.1); Carbon Dioxide 23.5 meq/L (21.0-32.0); Chloride 109 meq/L (98-107); Glomerular Filtration Rate 67 mL/min (>89); Glucose,Random 95 mg/dL (74-106); Potassium 4.5 meq/L (3.5-5.1); Sodium 142 meq/L (136-145)
[2018-07-22 05:16] LABS: Alanine Aminotransferase 506 U/L (12-78)
[2018-07-22 05:20] LABS: Alkaline Phosphatase 641 U/L (45-117); Carcinoembryonic Antigen 1.1 ng/mL (0.2-5.0); Total Protein 6.5 g/dL (6.4-8.2)
[2018-07-22] MEDS: Allopurinol 100 MG Tablet PO SCH (09:18)
[2018-07-22] MEDS: Lisinopril 20 MG Tablet PO SCH (09:18)
[2018-07-22] MEDS: Senna/Docusate Sodium 8.6/50 MG Tablet PO SCH ×2 (09:18→21:09)
--- NOTE | 2018-07-22 09:50 | P.PNGI ---
Subjective Interval history: Pt resting on couch. Complaining of some mid, upper abdominal pain, states aching and burning sensation. Denies any nausea, vomiting. Has been tolerating PO. Having BMs. <Olga Kramer - Last Filed: 07/22/18 10:46> Physical Exam Vital signs: Vital Signs 07/21/18 12:37 07/21/18 12:45 07/21/18 13:00 Temperature 98.0 F Pulse Rate 77 77 65 Respiratory Rate 14 14 19 Blood Pressure 151/72 H 139/70 136/65 Pulse Oximetry 97 97 98 07/21/18 13:15 07/21/18 14:02 07/21/18 16:00 Temperature 97.8 F 97.7 F 97.0 F L Pulse Rate 62 62 74 Respiratory Rate 21 17 19 Blood Pressure 141/69 H 170/72 H 136/74 Pulse Oximetry 98 99 97 07/21/18 20:00 07/22/18 00:00 07/22/18 04:00 Temperature 98.0 F 98.2 F 98.2 F Pulse Rate 71 62 60 Respiratory Rate 19 19 18 Blood Pressure 148/74 H 139/75 115/79 Pulse Oximetry 97 96 95 07/22/18 04:41 07/22/18 08:00 Temperature 97.7 F Pulse Rate 58 L Respiratory Rate 18 17 Blood Pressure 126/60 Pulse Oximetry 98 Intake & Output 07/21/18 07/22/18 07/22/18 18:59 06:59 18:59 Intake Total 1942 480 / 480 Balance 1942 480 / 480 Weight 81 kg Intake: IV 443 / 443 NS Inj 1,000 ML @ 100 mls/hr IV 343 / 343 .CONT .Q10H [facility] Rx#:[id number] Levaquin 500 mg Premix Inj 500 100 / 100 mg In 100 ml @ 0 mls/hr IV.SIG .STK-MED ONE Rx#:[id number] Oral 500 / 500 480 / 480 Anesthesia Amount 1000 / 1000 Other: # Voids 4 3 Date of Last Bowel Movement 07/20/18 07/21/18 # Bowel Movements 3 - Constitutional no acute distress - Routine HEENT Exam Head: Present: normocephalic, atraumatic Eye: Present: conjunctival icterus - Routine Respiratory Exam Absent: accessory muscle use - Routine Abdominal Exam Present: soft, normoactive bowel sounds. Absent: tenderness, distended - Routine Skin Exam Present: jaundice - Routine Neurological Exam Present: alert, oriented X3 <Olga Kramer - Last Filed: 07/22/18 10:46> Vital signs: Vital Signs 07/21/18 16:00 07/21/18 20:00 07/22/18 00:00 Temperature 97.0 F L 98.0 F 98.2 F Pulse Rate 74 71 62 Respiratory Rate 19 19 19 Blood Pressure 136/74 148/74 H 139/75 Pulse Oximetry 97 97 96 07/22/18 04:00 07/22/18 04:41 07/22/18 08:00 Temperature 98.2 F 97.7 F Pulse Rate 60 58 L Respiratory Rate 18 18 17 Blood Pressure 115/79 126/60 Pulse Oximetry 95 98 07/22/18 12:00 Temperature 97.7 F Pulse Rate 57 L Respiratory Rate 18 Blood Pressure 131/74 Pulse Oximetry 94 L Intake & Output 07/21/18 07/22/18 07/22/18 18:59 06:59 18:59 Intake Total 1943 / 1943 480 / 480 1000 / 1000 Balance 1943 / 1943 480 / 480 1000 / 1000 Weight 81 kg Intake: IV 443 / 443 1000 / 1000 Potassium Chlor 20 mEq/NACL 0. 1000 / 1000 45% Inj 1,000 ML @ 84 mls/hr IV .CONT .[id number] [facility] Rx#:[id number] NS Inj 1,000 ML @ 100 mls/hr IV 343 / 343 .CONT .Q10H [facility] Rx#:[id number] Levaquin 500 mg Premix Inj 500 100 / 100 mg In 100 ml @ 0 mls/hr IV.SIG .STK-MED ONE Rx#:[id number] Oral 500 / 500 480 / 480 Anesthesia Amount 1000 / 1000 Other: # Voids 4 3 Date of Last Bowel Movement 07/20/18 07/21/18 07/20/18 # Bowel Movements 3 <Kristan Doran - Last Filed: 07/22/18 15:50> Results - Labs CBC & Chem 7: 07/21/18 03:59 07/22/18 03:50 Laboratory Results - last 24 hr 07/21/18 07/21/18 07/22/18 10:10 10:10 03:50 Sodium 142 Potassium 4.5 Chloride 109 H Carbon Dioxide 23.5 Anion Gap 10 BUN 11 Creatinine 1.08 Estimated GFR 67 L Random Glucose 95 Calcium 8.7 Total Bilirubin 6.1 H AST 289 H ALT 506 H Alkaline Phosphatase 641 H Total Protein 6.5 Albumin 3.5 Tumor Marker AFP 4.8 Carcinoembryonic Ag 1.1 CA 19-9 Antigen 152.6 H - Imaging Impressions Chest CT 07/21/18 00:00 CONCLUSION: 1. Multiple subcentimeter nodular densities in the right lung. Recommend six- month follow-up noncontrast chest CT. 2. Coronary artery calcification. 3. No other acute findings in the chest. GI Procedure 07/21/18 00:00 CONCLUSION: Successful placement of an internal biliary stent. <Olga Kramer - Last Filed: 07/22/18 10:46> - Labs CBC & Chem 7: 07/21/18 03:59 07/22/18 03:50 Laboratory Results - last 24 hr 07/21/18 07/22/18 07/22/18 10:10 03:50 12:13 PT 12.5 H INR 1.2 APTT 31.0 H Sodium 142 Potassium 4.5 Chloride 109 H Carbon Dioxide 23.5 Anion Gap 10 BUN 11 Creatinine 1.08 Estimated GFR 67 L Random Glucose 95 Calcium 8.7 Total Bilirubin 6.1 H AST 289 H ALT 506 H Alkaline Phosphatase 641 H Total Protein 6.5 Albumin 3.5 Carcinoembryonic Ag 1.1 CA 19-9 Antigen 152.6 H - Imaging Impressions Chest CT 07/21/18 00:00 CONCLUSION: 1. Multiple subcentimeter nodular densities in the right lung. Recommend six- month follow-up noncontrast chest CT. 2. Coronary artery calcification. 3. No other acute findings in the chest. <Kristan Doran - Last Filed: 07/22/18 15:50> Assessment and Plan - Plan Assessment: - Elevated bilirubin Pt sent by PCP for routine labs that revealed elevated bilirubin. Denies any symptoms at that time. Now states he has been noticing yellowing of his skin for the past couple days. Also complaining of upper, mid abdominal pain, described as burning and aching. Denies unintentional weight loss, states has been trying to lose weight. MRCP (07/20) Severe intrahepatic biliary ductal dilatation, primarily involving the left lobe. There is a focal cutoff of the intrahepatic ducts at the confluence in the laz hepatis region. Gap in the visualized biliary ducts in this region measures approximately 1 cm. This is suspicious for malignancy but no discrete mass is identified. Common duct is normal diameter. No abnormal filling defects within the common duct. CA 19-9 152.6 CEA-1.1 AFP-4.8 ERCP with stent placement (07/21) Normal appearing ampulla. Small filling defect distal CBD. Large Gallbladder. Intrahepatic ducts not opacified. ? klatskins tumor. Brushings obtained and 8 fr x 12 cm stent placed in the Left IHD. Pancreatic duct normal Family history significant for mother with esophageal cancer. Denies any other known family history of cancer. History of social ETOH. Plan: ERCP brushing pending Oncology following Monitor LFTs Supportive care IR consult for R IHD with biopsy Further recommendations to follow This patient has been seen and examined by myself and Dr. 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 ERCP brushings pending. Monitor labs. <Kristan Doran - Last Filed: 07/22/18 15:50>
--- NOTE | 2018-07-22 11:44 | P.PNIM ---
Subjective Interval history: Patient resting on couch reports mid abdominal pain burning/aching in nature Tolerating PO intake, denies N/V Physical Exam Vital signs: Vital Signs 07/21/18 12:37 07/21/18 12:45 07/21/18 13:00 Temperature 98.0 F Pulse Rate 77 77 65 Respiratory Rate 14 14 19 Blood Pressure 151/72 H 139/70 136/65 Pulse Oximetry 97 97 98 07/21/18 13:15 07/21/18 14:02 07/21/18 16:00 Temperature 97.8 F 97.7 F 97.0 F L Pulse Rate 62 62 74 Respiratory Rate 21 17 19 Blood Pressure 141/69 H 170/72 H 136/74 Pulse Oximetry 98 99 97 07/21/18 20:00 07/22/18 00:00 07/22/18 04:00 Temperature 98.0 F 98.2 F 98.2 F Pulse Rate 71 62 60 Respiratory Rate 19 19 18 Blood Pressure 148/74 H 139/75 115/79 Pulse Oximetry 97 96 95 07/22/18 04:41 07/22/18 08:00 Temperature 97.7 F Pulse Rate 58 L Respiratory Rate 18 17 Blood Pressure 126/60 Pulse Oximetry 98 Intake & Output 07/21/18 07/22/18 07/22/18 18:59 06:59 18:59 Intake Total 1942 480 / 480 Balance 1942 480 / 480 Weight 81 kg Intake: IV 443 / 443 NS Inj 1,000 ML @ 100 mls/hr IV 343 / 343 .CONT .Q10H [facility] Rx#:[id number] Levaquin 500 mg Premix Inj 500 100 / 100 mg In 100 ml @ 0 mls/hr IV.SIG .STK-MED ONE Rx#:[id number] Oral 500 / 500 480 / 480 Anesthesia Amount 1000 / 1000 Other: # Voids 4 3 Date of Last Bowel Movement 07/20/18 07/21/18 07/20/18 # Bowel Movements 3 Narrative: GENERAL: This is a well-nourished, well-developed patient, in no apparent distress. CARDIOVASCULAR: Regular rate and rhythm RESPIRATORY: Clear to auscultation. Breath sounds equal bilaterally. GASTROINTESTINAL: Abdomen soft, non-tender, nondistended. Normal active bowel sounds MUSCULOSKELETAL: Extremities without clubbing, cyanosis, or edema. NEURO: Alert & Oriented x4 to person, place, time, situation. Moves all ext x4 Results - Labs CBC & Chem 7: 07/21/18 03:59 07/24/18 04:00 Laboratory Results - last 24 hr 07/21/18 07/21/18 07/22/18 10:10 10:10 03:50 Sodium 142 Potassium 4.5 Chloride 109 H Carbon Dioxide 23.5 Anion Gap 10 BUN 11 Creatinine 1.08 Estimated GFR 67 L Random Glucose 95 Calcium 8.7 Total Bilirubin 6.1 H AST 289 H ALT 506 H Alkaline Phosphatase 641 H Total Protein 6.5 Albumin 3.5 Tumor Marker AFP 4.8 Carcinoembryonic Ag 1.1 CA 19-9 Antigen 152.6 H - Imaging Impressions Chest CT 07/21/18 00:00 CONCLUSION: 1. Multiple subcentimeter nodular densities in the right lung. Recommend six- month follow-up noncontrast chest CT. 2. Coronary artery calcification. 3. No other acute findings in the chest. GI Procedure 07/21/18 00:00 CONCLUSION: Successful placement of an internal biliary stent. Assessment and Plan - Assessment (1) Dilated intrahepatic bile duct Code(s): K83.8 - Other specified diseases of biliary tract Status: Acute Plan: Patient is a pleasant 73-year-old male who has been experiencing abdominal bloating and abdominal pain for the last 2 weeks. Pt had abnormal LFT panel 07/15/18 with Total Bilirubin 1.6, direct bilirubin 0.7 , alk phos 539, AST 421, and ALT 661. This prompted his PCP, Dr. Pedroza, to order CT A/P which was completed at [facility]. Patient denied anorexia or weight loss. Patient denied fever or chills. Due to abnormal CT A/P patient was sent to [facility] for admission. CT A/P - intrahepatic biliary duct dilatation which terminates in the laz hepatis where there is soft tissue fullness. - Further evaluation with MRI recommended to rule out biliary duct neoplasm. - Atrophic left hepatic lobe also noted. MRCP (07/20/18) 1. Severe intrahepatic biliary ductal dilatation, primarily involving the left lobe. There is a focal cutoff of the intrahepatic ducts at the confluence in the laz hepatis region. Gap in the visualized biliary ducts in this region measures approximately 1 cm. This is suspicious for malignancy but no discrete mass is identified. 2. Common duct is normal diameter. No abnormal filling defects within the common duct. - Case d/w Gastroenterology, Dr. Doran 07/21 - S/P ERCP 1. Normal appearing ampulla 2. Small filling defect distal CBD. Large Gall bladder. Intrahepatic ducts not opacified. ? klatskins tumor. Brushings obtaned and 8 fr x 12 cm stent placed in the Left IHD 3. Pancreatic dust normal RECOMMENDATIONS: 1. Antibiotics 2. Liver enzymes 3. Levoquin 500mg x 1 ivp. IF LFTs still elevated consider PTC and R IHD drainage REPEAT EXAM: Return 1 month ERCP - pathology pending, consult to oncology, appreciate input - CT chest and tumor markers ordered - CT chest revealed: 1. Multiple subcentimeter nodular densities in the right lung. Recommend six -month follow-up noncontrast chest CT. 2. Coronary artery calcification. 3. No other acute findings in the chest. - s/p Successful placement of an internal biliary stent with IR Dr. Stover 07/21 - 07/[address] Doran patient may require percutaneous drain - Total bilirubin increased to 6.1, AST 289, ALT 506, Alk Phos 641 - GI placed consult to IR for right intrahepatic drain with biopsy, Patient NPO after midnight plan for drain placement tomorrow - recheck CMP in AM - DVT prophylaxis with SCDs - supportive care. - add Protonix 40 mg daily 2) HTN - continue Prinivil 3) Gout - continue allopurinol (2) Elevated LFTs Code(s): R94.5 - Abnormal results of liver function studies Status: Acute (3) Abdominal pain Code(s): R10.9 - Unspecified abdominal pain Status: Acute - Attending Attestation Patient examined. Assessment and plan formulated with Jimena Waller PA-C. I agree with the above. (3) Abdominal pain Qualifiers: Abdominal location: unspecified location Qualified Code(s): R10.9 - Unspecified abdominal pain
[2018-07-22 12:58] LABS: INR 1.2 Ratio; Prothrombin Time 12.5 sec (9.8-11.6)
--- NOTE | 2018-07-22 13:12 | P.PNONC ---
Subjective Interval history: Afebrile, sitting in bed having his vital signs checked. In no acute distress. Patient reports an upper abdominal pain which he describes as a "burning sensation". He denies any reflux, nausea or vomiting. Patient's questions were answered. While I was present in the room, the nurse came in and asked the patient when he last ate, stating that he may be going to have a hepatic drain placed. Objective Vital Signs/Intake & Output: Vital Signs 07/21/18 13:00 07/21/18 13:15 07/21/18 14:02 Temperature 97.8 F 97.7 F Pulse Rate 65 62 62 Respiratory Rate 19 21 17 Blood Pressure 136/65 141/69 H 170/72 H Pulse Oximetry 98 98 99 07/21/18 16:00 07/21/18 20:00 07/22/18 00:00 Temperature 97.0 F L 98.0 F 98.2 F Pulse Rate 74 71 62 Respiratory Rate 19 19 19 Blood Pressure 136/74 148/74 H 139/75 Pulse Oximetry 97 97 96 07/22/18 04:00 07/22/18 04:41 07/22/18 08:00 Temperature 98.2 F 97.7 F Pulse Rate 60 58 L Respiratory Rate 18 18 17 Blood Pressure 115/79 126/60 Pulse Oximetry 95 98 07/22/18 12:00 Temperature 97.7 F Pulse Rate 57 L Respiratory Rate 18 Blood Pressure 131/74 Pulse Oximetry 94 L Intake & Output 07/21/18 07/22/18 07/22/18 18:59 06:59 18:59 Intake Total 1942 / 1942 480 / 480 Balance 1942 480 / 480 Weight 81 kg Intake: IV 443 / 443 NS Inj 1,000 ML @ 100 mls/hr IV 343 / 343 .CONT .Q10H [facility] Rx#:[id number] Levaquin 500 mg Premix Inj 500 100 / 100 mg In 100 ml @ 0 mls/hr IV.SIG .STK-MED ONE Rx#:[id number] Oral 500 / 500 480 / 480 Anesthesia Amount 1000 / 1000 Other: # Voids 4 3 Date of Last Bowel Movement 07/20/18 07/21/18 07/20/18 # Bowel Movements 3 Result Diagrams: 07/21/18 03:59 07/22/18 03:50 Laboratory Results: Laboratory Results - last 24 hr 07/21/18 07/22/18 10:10 03:50 Sodium 142 Potassium 4.5 Chloride 109 H Carbon Dioxide 23.5 Anion Gap 10 BUN 11 Creatinine 1.08 Estimated GFR 67 L Random Glucose 95 Calcium 8.7 Total Bilirubin 6.1 H AST 289 H ALT 506 H Alkaline Phosphatase 641 H Total Protein 6.5 Albumin 3.5 Carcinoembryonic Ag 1.1 CA 19-9 Antigen 152.6 H Imaging Studies: Impressions Chest CT 07/21/18 00:00 CONCLUSION: 1. Multiple subcentimeter nodular densities in the right lung. Recommend six- month follow-up noncontrast chest CT. 2. Coronary artery calcification. 3. No other acute findings in the chest. GI Procedure 07/21/18 00:00 CONCLUSION: Successful placement of an internal biliary stent. Medications: Active Medications Generic Name Dose Route Start Last Admin Trade Name Freq PRN Reason Stop Dose Admin Acetaminophen 650 mg 07/20/18 18:32 07/22/18 03:08 Tylenol PO 650 mg Q4H PRN Administration Temp > 100.4 Allopurinol 100 mg 07/21/18 09:00 07/22/18 09:18 Zyloprim PO 100 mg DAILY [facility] Administration Sodium Chloride 1,000 mls @ 100 mls/hr 07/20/18 18:45 07/22/18 00:13 Ns Inj IV.CONT Not Given .Q10H [facility] Potassium Chloride/Sodium Chloride 1,000 mls @ 84 mls/hr 07/21/18 08:15 07/22 09:16 Potassium Chlor 20 Meq/Nacl 0.45% Inj IV.CONT Not Given .[id number] [facility] Lisinopril 40 mg 07/21/18 09:00 07/22/18 09:18 Prinivil PO 40 mg DAILY [facility] Administration Senna/Docusate Sodium 1 tab 07/20/18 21:00 07/22/18 09:18 Rosalina-Colace PO 1 tab BID [facility] Administration Objective Remarks: GENERAL: Well-nourished, well-developed male patient, in no acute distress. SKIN: Warm and dry.+ Mild jaundice. HEAD: Normocephalic. EYES: + scleral icterus. No injection or drainage. NECK: Supple, trachea midline. No JVD or lymphadenopathy. CARDIOVASCULAR: Regular rate and rhythm without murmurs. RESPIRATORY: Breath sounds equal bilaterally. No accessory muscle use. GASTROINTESTINAL: Abdomen soft, non-tender, nondistended. EXTREMITIES: No cyanosis, or edema. MUSCULOSKELETAL: Adequate muscle tone. NEUROLOGICAL: No obvious focal deficit. Awake, alert, and oriented x3. PSYCHIATRIC: Appropriate mood and affect; insight and judgment normal. Assessment/Plan - Plan Mr. De Los Santos is a pleasant 73-year-old male patient, who presented to the hospital on the direction of his PCP following routine lab work revealed elevated liver enzymes and a CT scan which showed intrahepatic biliary dilation. Oncology was consulted to render opinion in regards to possible [place] tumor. Plan: 1. Status post ERCP with biliary stent placement on 07/21/2018. Brushing was obtained and sent for cytology. Cytology pending. Tumor marker CA 19-9 was elevated at 152. Alpha-fetoprotein is normal. CEA is normal at 1.1. Clinical suspicion for [place] tumor. 2. Elevated liver enzymes. Total bilirubin has increased to 6.1. Alk phosphate, ALT and AST have all elevated today. Review of GI notes, patient pending possible placement of hepatobiliary drain today. 3. We will will await cytology results. From an oncology standpoint the patient may follow-up as an outpatient once medically stable. 4. Patient's questions were answered. - Attending Statement The exam, history, and the medical decision-making described in the above note were completed with the assistance of the mid-level provider. I reviewed and agree with the findings presented. I attest that I had a [id number] encounter with the patient on the same day, and personally performed and documented my assessment and findings in the medical record. Patient still has burning sensation in the midepigastric area. His bilirubin is still elevated. He is awaiting possible percutaneous drainage. ERCP brushing cytology is still pending. If it is negative with discussed with GI to see if patient could have EUS with possible biopsy.
[2018-07-22] MEDS: Pantoprazole Inj 40 MG Vial IV.PUSH SCH (15:08)
[2018-07-23 07:29] LABS: Alanine Aminotransferase 455 U/L (12-78); Anion Gap 7 meq/L (5-15); Aspartate Aminotransferase 279 U/L (15-37); Blood Urea Nitrogen 12 mg/dL (7-18); Calcium 8.3 mg/dL (8.5-10.1); Carbon Dioxide 24.5 meq/L (21.0-32.0); Chloride 108 meq/L (98-107); Glomerular Filtration Rate 71 mL/min (>89); Glucose,Random 88 mg/dL (74-106); Potassium 4.4 meq/L (3.5-5.1); Sodium 139 meq/L (136-145)
[2018-07-23 07:32] LABS: Alkaline Phosphatase 547 U/L (45-117); Total Protein 6.2 g/dL (6.4-8.2)
[2018-07-23] MEDS: Sod Chloride 0.9% Inj 1,000 ML IV.CONT SCH ×2 (09:28→18:10)
[2018-07-23] MEDS: Senna/Docusate Sodium 8.6/50 MG Tablet PO SCH ×2 (09:30→20:05)
[2018-07-23] MEDS: Lisinopril 20 MG Tablet PO SCH (09:31)
[2018-07-23] MEDS: Pantoprazole Inj 40 MG Vial IV.PUSH SCH (09:32)
[2018-07-23] MEDS: Allopurinol 100 MG Tablet PO SCH (09:32)
--- NOTE | 2018-07-23 11:15 | P.PNGI ---
Subjective Interval history: Patient sitting up on couch in room with at bedside. Patient reports relief of upper abdominal burning sensation post receiving as needed pain medication this morning. N.p.o. status maintained for 2 days interventional radiology procedure. No BM this morning, patient reports positive flatus. <Ewelina Weber - Last Filed: 07/23/18 11:59> Physical Exam Vital signs: Vital Signs 07/22/18 12:00 07/22/18 16:00 07/22/18 20:00 Temperature 97.7 F 97.8 F 98.4 F Pulse Rate 57 L 60 61 Respiratory Rate 18 17 18 Blood Pressure 131/74 135/67 119/71 Pulse Oximetry 94 L 97 96 07/23/18 08:00 Temperature 98.0 F Pulse Rate 97 H Respiratory Rate 19 Blood Pressure 119/62 Pulse Oximetry 97 Intake & Output 07/22/18 07/23/18 07/23/18 18:59 06:59 18:59 Intake Total 1000 / 1000 1000 / 1000 Balance 1000 / 1000 1000 / 1000 Intake: IV 1000 / 1000 1000 / 1000 Potassium Chlor 20 mEq/NACL 0. 1000 / 1000 1000 / 1000 45% Inj 1,000 ML @ 84 mls/hr IV .CONT .[id number] [facility] Rx#:[id number] Other: # Voids 6 Date of Last Bowel Movement 07/20/18 07/20/18 # Bowel Movements 0 - Constitutional no acute distress - Routine HEENT Exam Head: Present: normocephalic Eye: Present: conjunctival icterus - Routine Respiratory Exam Present: CTA bilaterally. Absent: accessory muscle use - Routine Cardiovascular Exam Present: RRR - Routine Abdominal Exam Present: soft, normoactive bowel sounds. Absent: tenderness, distended, guarding, firm, rigid - Routine Extremities Exam Present: cyanosis, full ROM. Absent: edema - Routine Skin Exam Present: dry, warm, jaundice - Routine Neurological Exam Present: alert, oriented X3 - Detailed Neurological Exam: Coma Scale Eye Opening: Spontaneous Verbal Response: Oriented Motor Response: Obey commands [place] Coma Scale Total: 15 - Routine Psychiatric Exam Present: normal affect, cooperative <Ewelina Weber - Last Filed: 07/23/18 11:59> Vital signs: Vital Signs 07/22/18 16:00 07/22/18 20:00 07/23/18 08:00 Temperature 97.8 F 98.4 F 98.0 F Pulse Rate 60 61 97 H Respiratory Rate 17 18 19 Blood Pressure 135/67 119/71 119/62 Pulse Oximetry 97 96 97 07/23/18 11:57 Temperature Pulse Rate 65 Respiratory Rate 18 Blood Pressure 169/77 H Pulse Oximetry 18 L Intake & Output 07/22/18 07/23/18 07/23/18 18:59 06:59 18:59 Intake Total 1000 / 1000 1000 / 1000 Balance 1000 / 1000 1000 / 1000 Intake: IV 1000 / 1000 1000 / 1000 Potassium Chlor 20 mEq/NACL 0. 1000 / 1000 1000 / 1000 45% Inj 1,000 ML @ 84 mls/hr IV .CONT .[id number] [facility] Rx#:[id number] Other: # Voids 6 Date of Last Bowel Movement 07/20/18 07/20/18 # Bowel Movements 0 <Kristan Doran - Last Filed: 07/23/18 15:24> Results - Labs CBC & Chem 7: 07/21/18 03:59 07/23/18 04:49 Laboratory Results - last 24 hr 07/22/18 07/23/18 12:13 04:49 PT 12.5 H INR 1.2 APTT 31.0 H Sodium 139 Potassium 4.4 Chloride 108 H Carbon Dioxide 24.5 Anion Gap 7 BUN 12 Creatinine 1.03 Estimated GFR 71 L Random Glucose 88 Calcium 8.3 L Total Bilirubin 5.7 H AST 279 H ALT 455 H Alkaline Phosphatase 547 H Total Protein 6.2 L Albumin 3.0 L <Ewelina Weber - Last Filed: 07/23/18 11:59> - Labs CBC & Chem 7: 07/21/18 03:59 07/23/18 04:49 Laboratory Results - last 24 hr 07/23/18 04:49 Sodium 139 Potassium 4.4 Chloride 108 H Carbon Dioxide 24.5 Anion Gap 7 BUN 12 Creatinine 1.03 Estimated GFR 71 L Random Glucose 88 Calcium 8.3 L Total Bilirubin 5.7 H AST 279 H ALT 455 H Alkaline Phosphatase 547 H Total Protein 6.2 L Albumin 3.0 L <Kristan Doran - Last Filed: 07/23/18 15:24> Assessment and Plan - Plan Assessment: - Elevated bilirubin Pt sent by PCP for routine labs that revealed elevated bilirubin. Denies any symptoms at that time. Now states he has been noticing yellowing of his skin for the past couple days. Also complaining of upper, mid abdominal pain, described as burning and aching. Denies unintentional weight loss, states has been trying to lose weight. MRCP (07/20) Severe intrahepatic biliary ductal dilatation, primarily involving the left lobe. There is a focal cutoff of the intrahepatic ducts at the confluence in the laz hepatis region. Gap in the visualized biliary ducts in this region measures approximately 1 cm. This is suspicious for malignancy but no discrete mass is identified. Common duct is normal diameter. No abnormal filling defects within the common duct. CA 19-9 152.6 CEA-1.1 AFP-4.8 ERCP with stent placement (07/21) Normal appearing ampulla. Small filling defect distal CBD. Large Gallbladder. Intrahepatic ducts not opacified. ? klatskins tumor. Brushings obtained and 8 fr x 12 cm stent placed in the Left IHD. Pancreatic duct normal Family history significant for mother with esophageal cancer. Denies any other known family history of cancer. History of social ETOH. 07/23/18-patient sitting up on couch in room, spouse at bedside. N.p.o. status maintain for IR PTC drainage of right lobe of liver with biopsy today. Results of ERCP brushings reviewed with patient and spouse. Findings as follows --> COMMON BILE DUCT BRUSHING: INCONCLUSIVE FOR MALIGNANT CELLS. ABUNDANT BILE DUCT EPITHELIUM WITH SOME REACTIVE CHANGES AND ONE GROUP OF CELLS SUSPICIOUS FOR MALIGNANCY. Todays labs reviewed total bilirubin 5.7 AST 279 ALT 455 alkaline phos 547 all trending down at this point. 07/21/18: Hemoglobin 13.0 hematocrit 38.0 07/22/18 INR 1.2. Plan: -Patient scheduled for IR procedure: Draining of the right intrahepatic duct with further biopsies -Continue to monitor liver function tests -Supportive care -Further recommendations to follow This patient has been seen and examined by myself and Dr. Doran and this note is written on his behalf <Ewelina Weber - Last Filed: 07/23/18 11:59> - Plan Seen and examined with EMPLOYMENT AND CLAIMS AIDE, PTC with drainage and biopsies planned for today. ERCP/brushings suspicious for malignancy. Discussed with . <Kristan Doran - Last Filed: 07/23/18 15:24>
[2018-07-23] MEDS ORDERED: Levofloxacin 500 mg Premix Inj 500 MG/100 ML PIGGYBACK IV.SIG ONE (14:09)
--- NOTE | 2018-07-23 14:49 | P.DCO ---
- Home Health Nursing Order: Medical education, Signs/symptoms of disease process, Nursing assessment with vital signs Instructions: percutaneous intrahepatic drain - Case Management Consult No - Certification I have seen patient Apollo De Los Santos on 07/23/18. My clinical findings support the need for the requested home health care services because: Deconditioned with increased weakness I certify that my clinical findings support that this patient is homebound because: Unable to use public transportation
[2018-07-23] MEDS ORDERED: Sod Chloride 0.9% Inj 1,000 ML IV.CONT ONE (15:15)
[2018-07-23] MEDS ORDERED: Neostigmine Inj 5 MG/5 ML Syringe IV.PUSH ONE (15:15)
[2018-07-23] MEDS ORDERED: Lidocaine PF 1% Inj 5 ML Syringe OTHER ONE (15:15)
[2018-07-23] MEDS ORDERED: Glycopyrrolate Inj 1 MG/5 ML Syringe IV.PUSH ONE (15:15)
[2018-07-23] MEDS ORDERED: Iohexol 350 MG/ML 100 ML Vial (for Cath Lab) IVCONTRAST ONE (16:51)
[2018-07-23] MEDS ORDERED: fentaNYL Citrate Inj 100 MCG/2 ML Ampul ONE (17:01)
--- NOTE | 2018-07-23 17:03 | P.RAD ---
Post Procedure Progress Note - Pre Procedure Diagnosis (1) Dilated intrahepatic bile duct (2) Elevated LFTs - Post Procedure Diagnosis (1) Dilated intrahepatic bile duct (2) Elevated LFTs - Procedure Information Procedure Date: 07/23/18 Supervising Radiologist: Rick Gomez MD Estimated blood loss (mL): 0 Anesthesia: General - Plan of Activity Patient to Unit: PACU Patient Condition: Good See PACS Report for procedural detail/treatment. Drainage Procedure Fluoroscopy right Biliary Drainage Placement Drainage: [place] drainage Fluid Description: Green, Red Findings: I/E drain
--- NOTE | 2018-07-23 17:10 | P.PNIM ---
Subjective Interval history: No new complaints. Physical Exam Vital signs: Vital Signs 07/22/18 20:00 07/23/18 08:00 07/23/18 11:57 Temperature 98.4 F 98.0 F Pulse Rate 61 97 H 65 Respiratory Rate 18 19 18 Blood Pressure 119/71 119/62 169/77 H Pulse Oximetry 96 97 18 L Intake & Output 07/22/18 07/23/18 07/23/18 18:59 06:59 18:59 Intake Total 1000 / 1000 1000 / 1000 Balance 1000 / 1000 1000 / 1000 Intake: IV 1000 / 1000 1000 / 1000 Potassium Chlor 20 mEq/NACL 0. 1000 / 1000 1000 / 1000 45% Inj 1,000 ML @ 84 mls/hr IV .CONT .[id number] Rx#:[id number] Other: # Voids 6 Date of Last Bowel Movement 07/20/18 07/20/18 07/21/18 # Bowel Movements 0 Results - Labs CBC & Chem 7: 07/21/18 03:59 07/24/18 04:00 Laboratory Results - last 24 hr 07/23/18 04:49 Sodium 139 Potassium 4.4 Chloride 108 H Carbon Dioxide 24.5 Anion Gap 7 BUN 12 Creatinine 1.03 Estimated GFR 71 L Random Glucose 88 Calcium 8.3 L Total Bilirubin 5.7 H AST 279 H ALT 455 H Alkaline Phosphatase 547 H Total Protein 6.2 L Albumin 3.0 L Assessment and Plan - Assessment (1) Dilated intrahepatic bile duct Code(s): K83.8 - Other specified diseases of biliary tract Status: Acute Plan: Patient is a pleasant 73-year-old male who has been experiencing abdominal bloating and abdominal pain for the last 2 weeks. Pt had abnormal LFT panel 07/15/18 with Total Bilirubin 1.6, direct bilirubin 0.7 , alk phos 539, AST 421, and ALT 661. This prompted his PCP, Dr. Pedroza, to order CT A/P which was completed at [facility]. Patient denied anorexia or weight loss. Patient denied fever or chills. Due to abnormal CT A/P patient was sent to [place] ER for admission. CT A/P - intrahepatic biliary duct dilatation which terminates in the laz hepatis where there is soft tissue fullness. - Further evaluation with MRI recommended to rule out biliary duct neoplasm. - Atrophic left hepatic lobe also noted. MRCP (07/20/18) 1. Severe intrahepatic biliary ductal dilatation, primarily involving the left lobe. There is a focal cutoff of the intrahepatic ducts at the confluence in the laz hepatis region. Gap in the visualized biliary ducts in this region measures approximately 1 cm. This is suspicious for malignancy but no discrete mass is identified. 2. Common duct is normal diameter. No abnormal filling defects within the common duct. - Case d/w Gastroenterology, Dr. Doran 07/21 - S/P ERCP 1. Normal appearing ampulla 2. Small filling defect distal CBD. Large Gall bladder. Intrahepatic ducts not opacified. ? kl[place]kins tumor. Brushings obtaned and 8 fr x 12 cm stent placed in the Left IHD 3. Pancreatic dust normal RECOMMENDATIONS: 1. Antibiotics 2. Liver enzymes 3. Levoquin 500mg x 1 ivp. IF LFTs still elevated consider PTC and R IHD drainage REPEAT EXAM: Return 1 month ERCP - pathology pending, consult to oncology, appreciate input - CT chest and tumor markers ordered - CT chest revealed: 1. Multiple subcentimeter nodular densities in the right lung. Recommend six -month follow-up noncontrast chest CT. 2. Coronary artery calcification. 3. No other acute findings in the chest. - s/p Successful placement of an internal biliary stent with IR Dr. Stover 07/21 - 07/[address] Doran patient may require percutaneous drain - Total bilirubin increased to 6.1, AST 289, ALT 506, Alk Phos 641 - GI placed consult to IR for right intrahepatic drain with biopsy, Patient NPO after midnight plan for drain placement tomorrow - recheck CMP in AM - DVT prophylaxis with SCDs - supportive care. - add Protonix 40 mg daily 2) HTN - continue Prinivil 3) Gout - continue allopurinol (2) Elevated LFTs Code(s): R94.5 - Abnormal results of liver function studies Status: Acute
[2018-07-23] MEDS ORDERED: *morphine SULFATE 4 MG/ML PERIprocedure ONLY ONE (17:14)
--- NOTE | 2018-07-23 18:04 | P.PNONC ---
Subjective Interval history: Patient is feeling better. Abdominal pain improved. No CP/SOB. No N?V. + BM. Objective Vital Signs/Intake & Output: Vital Signs 07/22/18 20:00 07/23/18 08:00 07/23/18 11:57 Temperature 98.4 F 98.0 F Pulse Rate 61 97 H 65 Respiratory Rate 18 19 18 Blood Pressure 119/71 119/62 169/77 H Pulse Oximetry 96 97 18 L 07/23/18 16:53 07/23/18 17:00 07/23/18 17:15 Temperature 97.3 F L Pulse Rate 59 L 57 L 50 L Respiratory Rate 20 20 21 Blood Pressure 172/73 H 158/74 H 152/70 H Pulse Oximetry 99 97 98 07/23/18 17:30 Temperature Pulse Rate 50 L Respiratory Rate 20 Blood Pressure 153/73 H Pulse Oximetry 96 Intake & Output 07/22/18 07/23/18 07/23/18 18:59 06:59 18:59 Intake Total 1000 / 1000 1000 / 1000 0 / 0 Output Total 0 / 0 Balance 1000 / 1000 1000 / 1000 0 / 0 Intake: IV 1000 / 1000 1000 / 1000 Potassium Chlor 20 mEq/NACL 0. 1000 / 1000 1000 / 1000 45% Inj 1,000 ML @ 84 mls/hr IV .CONT .[id number] [facility] Rx#:[id number] Oral 0 / 0 Output: Urine 0 / 0 Other: # Voids 6 Date of Last Bowel Movement 07/20/18 07/20/18 07/21/18 # Bowel Movements 0 Result Diagrams: 07/21/18 03:59 07/23/18 04:49 Laboratory Results: Laboratory Results - last 24 hr 07/23/18 04:49 Sodium 139 Potassium 4.4 Chloride 108 H Carbon Dioxide 24.5 Anion Gap 7 BUN 12 Creatinine 1.03 Estimated GFR 71 L Random Glucose 88 Calcium 8.3 L Total Bilirubin 5.7 H AST 279 H ALT 455 H Alkaline Phosphatase 547 H Total Protein 6.2 L Albumin 3.0 L Medications: Active Medications Generic Name Dose Route Start Last Admin Trade Name Freq PRN Reason Stop Dose Admin Acetaminophen 650 mg 07/20/18 18:32 07/22/18 03:08 Tylenol PO 650 mg Q4H PRN Administration Temp > 100.4 Allopurinol 100 mg 07/21/18 09:00 07/23/18 09:32 Zyloprim PO 100 mg DAILY WOJCIECH Administration Sodium Chloride 1,000 mls @ 100 mls/hr 07/20/18 18:45 07/23/18 09:28 Ns Inj IV.CONT Not Given .Q10H WOJCIECH Potassium Chloride/Sodium Chloride 1,000 mls @ 84 mls/hr 07/21/18 08:15 07/22 21:09 Potassium Chlor 20 Meq/Nacl 0.45% Inj IV.CONT 84 mls/hr .[id number] WOJCIECH Administration Lisinopril 40 mg 07/21/18 09:00 07/23/18 09:31 Prinivil PO 40 mg DAILY WOJCIECH Administration Pantoprazole Sodium 40 mg 07/22/18 15:00 07/23/18 09:32 Protonix Inj IV.PUSH 40 mg DAILY WOJCIECH Administration Senna/Docusate Sodium 1 tab 07/20/18 21:00 07/23/18 09:30 Rosalina-Colace PO 1 tab BID WOJCIECH Administration Tramadol HCl 50 mg 07/22/18 14:42 07/23/18 05:53 Ultram PO 50 mg Q6H PRN Administration pain 1-10. Objective Remarks: GENERAL: Well-nourished, well-developed patient. SKIN: Warm and dry. Jaundiced HEAD: Normocephalic. EYES: + scleral icterus. No injection or drainage. NECK: Supple, trachea midline. No JVD or lymphadenopathy. LYMPHATIC: No adenopathy. CARDIOVASCULAR: Regular rate and rhythm without murmurs. RESPIRATORY: Breath sounds equal bilaterally. No accessory muscle use. GASTROINTESTINAL: Abdomen soft, slightly tender upper abdomen. nondistended. EXTREMITIES: No cyanosis, or edema. MUSCULOSKELETAL: Adequate muscle tone. NEUROLOGICAL: No obvious focal deficit. Awake, alert, and oriented x3. PSYCHIATRIC: Appropriate mood and affect; insight and judgment normal. Assessment/Plan (1) Dilated intrahepatic bile duct Code(s): K83.8 - Other specified diseases of biliary tract Status: Acute (2) Elevated LFTs Code(s): R94.5 - Abnormal results of liver function studies Status: Acute (3) Abdominal pain Code(s): R10.9 - Unspecified abdominal pain Status: Acute - Plan Mr. De Los Santos is a pleasant 73-year-old male patient, who presented to the hospital on the direction of his PCP following routine lab work revealed elevated liver enzymes and a CT scan which showed intrahepatic biliary dilation. Oncology was consulted to render opinion in regards to possible Kl[place] tumor. Plan: 1. Status post ERCP with biliary stent placement on 07/21/2018. Brushing was obtained and cytology inconclusive, there is a cluster of suspicious cells for neoplasm. Explained findings with patient. Tumor marker CA 19-9 was elevated at 152. Alpha-fetoprotein is normal. CEA is normal at 1.1. Clinical suspicion for Kl[place]kin tumor. He is going to have percutaneous biliary drain and possible biopsy today. 2. Elevated liver enzymes. Total bilirubin persistently elevated. Alk phosphate, ALT and AST have all elevated. Await percutaneous biliary drain placement. 3. Patient's questions were answered. (3) Abdominal pain Qualifiers: Abdominal location: unspecified location Qualified Code(s): R10.9 - Unspecified abdominal pain
--- NOTE | 2018-07-23 18:12 | P.PNIM ---
Subjective Interval history: Patient seen S/P internal/external biliary drain patient drowsy post anesthesia, offers no complaints Physical Exam Vital signs: Vital Signs 07/22/18 20:00 07/23/18 08:00 07/23/18 11:57 Temperature 98.4 F 98.0 F Pulse Rate 61 97 H 65 Respiratory Rate 18 19 18 Blood Pressure 119/71 119/62 169/77 H Pulse Oximetry 96 97 18 L 07/23/18 16:53 07/23/18 17:00 07/23/18 17:15 Temperature 97.3 F L Pulse Rate 59 L 57 L 50 L Respiratory Rate 20 20 21 Blood Pressure 172/73 H 158/74 H 152/70 H Pulse Oximetry 99 97 98 07/23/18 17:30 07/23/18 17:45 07/23/18 17:55 Temperature 97.5 F L Pulse Rate 50 L 61 59 L Respiratory Rate 20 24 22 Blood Pressure 153/73 H 157/81 H 152/74 H Pulse Oximetry 96 95 95 Intake & Output 07/22/18 07/23/18 07/23/18 18:59 06:59 18:59 Intake Total 1000 / 1000 1000 / 1000 0 / 0 Output Total 0 / 0 Balance 1000 / 1000 1000 / 1000 0 / 0 Intake: IV 1000 / 1000 1000 / 1000 Potassium Chlor 20 mEq/NACL 0. 1000 / 1000 1000 / 1000 45% Inj 1,000 ML @ 84 mls/hr IV .CONT .[id number] [facility] Rx#:[id number] Oral 0 / 0 Output: Urine 0 / 0 Other: # Voids 6 Date of Last Bowel Movement 07/20/18 07/20/18 07/21/18 # Bowel Movements 0 Narrative: GENERAL: This is a well-nourished, well-developed patient, in no apparent distress. CARDIOVASCULAR: Regular rate and rhythm RESPIRATORY: Clear to auscultation. Breath sounds equal bilaterally. GASTROINTESTINAL: Abdomen soft, non-tender, nondistended. Normal active bowel sounds. biliary drain in place MUSCULOSKELETAL: Extremities without clubbing, cyanosis, or edema. NEURO: Drowsy post anesthesia. Moves all ext x4 Results - Labs CBC & Chem 7: 07/21/18 03:59 07/24/18 04:00 Laboratory Results - last 24 hr 07/23/18 04:49 Sodium 139 Potassium 4.4 Chloride 108 H Carbon Dioxide 24.5 Anion Gap 7 BUN 12 Creatinine 1.03 Estimated GFR 71 L Random Glucose 88 Calcium 8.3 L Total Bilirubin 5.7 H AST 279 H ALT 455 H Alkaline Phosphatase 547 H Total Protein 6.2 L Albumin 3.0 L Assessment and Plan - Assessment (1) Dilated intrahepatic bile duct Code(s): K83.8 - Other specified diseases of biliary tract Status: Acute Plan: Patient is a pleasant 73-year-old male who has been experiencing abdominal bloating and abdominal pain for the last 2 weeks. Pt had abnormal LFT panel 07/15/18 with Total Bilirubin 1.6, direct bilirubin 0.7 , alk phos 539, AST 421, and ALT 661. This prompted his PCP, Dr. Pedroza, to order CT A/P which was completed at [facility]. Patient denied anorexia or weight loss. Patient denied fever or chills. Due to abnormal CT A/P patient was sent to [place] [facility] for admission. CT A/P - intrahepatic biliary duct dilatation which terminates in the laz hepatis where there is soft tissue fullness. - Further evaluation with MRI recommended to rule out biliary duct neoplasm. - Atrophic left hepatic lobe also noted. MRCP (07/20/18) 1. Severe intrahepatic biliary ductal dilatation, primarily involving the left lobe. There is a focal cutoff of the intrahepatic ducts at the confluence in the laz hepatis region. Gap in the visualized biliary ducts in this region measures approximately 1 cm. This is suspicious for malignancy but no discrete mass is identified. 2. Common duct is normal diameter. No abnormal filling defects within the common duct. - Case d/w Gastroenterology, Dr. Doran 07/21 - S/P ERCP 1. Normal appearing ampulla 2. Small filling defect distal CBD. Large Gall bladder. Intrahepatic ducts not opacified. ? klatskins tumor. Brushings obtaned and 8 fr x 12 cm stent placed in the Left IHD 3. Pancreatic dust normal RECOMMENDATIONS: 1. Antibiotics 2. Liver enzymes 3. Levoquin 500mg x 1 ivp. IF LFTs still elevated consider PTC and R IHD drainage REPEAT EXAM: Return 1 month ERCP - pathology pending, consult to oncology, appreciate input - CT chest and tumor markers ordered - CT chest revealed: 1. Multiple subcentimeter nodular densities in the right lung. Recommend six -month follow-up noncontrast chest CT. 2. Coronary artery calcification. 3. No other acute findings in the chest. - s/p Successful placement of an internal biliary stent with IR Dr. Stover 07/21 - 07/[address] Doran patient may require percutaneous drain - Total bilirubin increased to 6.1, AST 289, ALT 506, Alk Phos 641 - GI placed consult to IR for right intrahepatic drain with biopsy, Patient NPO after midnight plan for drain placement tomorrow - recheck CMP in AM - DVT prophylaxis with SCDs - supportive care. - Protonix 40 mg daily - S/P internal/external biliary drain 07/[address] Gomez - plan for biopsy tomorrow 2) HTN - continue Prinivil 3) Gout - continue allopurinol (2) Elevated LFTs Code(s): R94.5 - Abnormal results of liver function studies Status: Acute (3) Abdominal pain Code(s): R10.9 - Unspecified abdominal pain Status: Acute - Attending Attestation Patient examined. Assessment and plan formulated with Jimena Waller PA-C. I agree with the above. (3) Abdominal pain Qualifiers: Abdominal location: unspecified location Qualified Code(s): R10.9 - Unspecified abdominal pain
[2018-07-23] MEDS: KCL 20 mEq/NACL 0.45% Inj 1,000 ML IV.CONT SCH ×2 (19:36→22:26)
[2018-07-24] MEDS: Sod Chloride 0.9% Inj 1,000 ML IV.CONT SCH ×3 (02:01→22:52)
[2018-07-24 05:37] LABS: Alkaline Phosphatase 643 U/L (45-117); Total Protein 6.9 g/dL (6.4-8.2)
[2018-07-24 05:41] LABS: Alanine Aminotransferase 506 U/L (12-78); Albumin 3.1 g/dL (3.4-5.0); Anion Gap 10 meq/L (5-15); Aspartate Aminotransferase 281 U/L (15-37); Blood Urea Nitrogen 14 mg/dL (7-18); Calcium 8.4 mg/dL (8.5-10.1); Carbon Dioxide 23.5 meq/L (21.0-32.0); Chloride 106 meq/L (98-107); Glomerular Filtration Rate 67 mL/min (>89); Glucose,Random 114 mg/dL (74-106); Sodium 139 meq/L (136-145)
[2018-07-24 05:42] LABS: Potassium 4.7 meq/L (3.5-5.1)
[2018-07-24] MEDS: Senna/Docusate Sodium 8.6/50 MG Tablet PO SCH ×2 (09:11→20:11)
[2018-07-24] MEDS: Allopurinol 100 MG Tablet PO SCH (09:12)
[2018-07-24] MEDS: Pantoprazole Inj 40 MG Vial IV.PUSH SCH (09:12)
[2018-07-24] MEDS: Lisinopril 20 MG Tablet PO SCH (09:12)
[2018-07-24] MEDS: KCL 20 mEq/NACL 0.45% Inj 1,000 ML IV.CONT SCH ×2 (09:26→21:43)
[2018-07-24] MEDS ORDERED: fentaNYL Citrate Inj 250 MCG/5 ML Ampul ONE (11:38)
[2018-07-24] MEDS ORDERED: Levofloxacin 500 mg Premix Inj 500 MG/100 ML PIGGYBACK IV.SIG ONE (11:39)
--- NOTE | 2018-07-24 12:02 | P.DS ---
Date of admission: 07/20/18 17:51 Primary care physician: Salvador Pedroza Attending physician on discharge: Taiwo Nj Anticipated date of discharge: 07/24/18 Brief History from admission: Patient is a pleasant 73-year-old male who has been experiencing abdominal bloating and abdominal pain for the last 2 weeks. Pt had abnormal LFT panel 07/15/18 with Total Bilirubin 1.6, direct bilirubin 0.7 , alk phos 539, AST 421, and ALT 661. This prompted his PCP, Dr. Pedroza, to order CT A/P which was completed at [facility]. CT A/P showed intrahepatic biliary duct dilatation which terminates in the laz hepatis where there is soft tissue fullness. Further evaluation with MRI recommended to rule out biliary duct neoplasm. Atrophic left hepatic lobe also noted. Patient denied anorexia or weight loss. Patient denied fever or chills. Patient was sent to [facility] for admission. Patient will be admitted to [facility] for further evaluation and treatment. PMH: - Basal Cell Carcinoma, s/p excision from pt's back - Gout - HTN - Hyperlipidemia PSH: - Excision of BCC from back FHX: - mother d/t esophageal CA - father d/t OR SHX: - - no biologic children - former cigars smoker - etoh: 2-3 beers per week - denies illicit street drugs ALL: PCN DS: Diagnosis - Discharge Diagnosis (1) Dilated intrahepatic bile duct Status: Acute (2) Elevated LFTs Status: Acute (3) Abdominal pain Status: Acute DS: Medications - Discharge Medications Prescriptions: pantoprazole [Protonix] 40 mg PO DAILY 30 Days #30 tab DS: Summary Hospital Course: Patient is a pleasant 73-year-old male who has been experiencing abdominal bloating and abdominal pain for the last 2 weeks. Pt had abnormal LFT panel 07/15/18 with Total Bilirubin 1.6, direct bilirubin 0.7 , alk phos 539, AST 421, and ALT 661. This prompted his PCP, Dr. Pedroza, to order CT A/P which was completed at [facility]. Patient denied anorexia or weight loss. Patient denied fever or chills. Due to abnormal CT A/P patient was sent to [facility] for admission. CT A/P - intrahepatic biliary duct dilatation which terminates in the laz hepatis where there is soft tissue fullness. - Further evaluation with MRI recommended to rule out biliary duct neoplasm. - Atrophic left hepatic lobe also noted. MRCP (07/20/18) 1. Severe intrahepatic biliary ductal dilatation, primarily involving the left lobe. There is a focal cutoff of the intrahepatic ducts at the confluence in the laz hepatis region. Gap in the visualized biliary ducts in this region measures approximately 1 cm. This is suspicious for malignancy but no discrete mass is identified. 2. Common duct is normal diameter. No abnormal filling defects within the common duct. - Case d/w Gastroenterology, Dr. Doran 07/21 - S/P ERCP 1. Normal appearing ampulla 2. Small filling defect distal CBD. Large Gall bladder. Intrahepatic ducts not opacified. ? klatskins tumor. Brushings obtaned and 8 fr x 12 cm stent placed in the Left IHD 3. Pancreatic dust normal RECOMMENDATIONS: 1. Antibiotics 2. Liver enzymes 3. Levoquin 500mg x 1 ivp. IF LFTs still elevated consider PTC and R IHD drainage REPEAT EXAM: Return 1 month ERCP - pathology pending, consult to oncology, appreciate input - CT chest and tumor markers ordered - CT chest revealed: 1. Multiple subcentimeter nodular densities in the right lung. Recommend six -month follow-up noncontrast chest CT. 2. Coronary artery calcification. 3. No other acute findings in the chest. - s/p Successful placement of an internal biliary stent with IR Dr. Stover 07/21 - 07/[address] Doran patient may require percutaneous drain - Total bilirubin increased to 6.1, AST 289, ALT 506, Alk Phos 641 - GI placed consult to IR for right intrahepatic drain with biopsy, Patient NPO after midnight plan for drain placement tomorrow - recheck CMP in AM - DVT prophylaxis with SCDs - supportive care. - Protonix 40 mg daily - S/P internal/external biliary drain 07/[address] Gomez - S/P liver biopsy 07/24 with IR 2) HTN - continue Prinivil 3) Gout - continue allopurinol - Time Spent with Patient Total time spent providing and/or coordinating discharge services: Greater than 30 minutes - Quality: VTE Deep Vein Thrombosis/Pulmonary Embolism Present on Admission: No Exam Vital signs: Vital Signs 07/23/18 16:53 07/23/18 17:00 07/23/18 17:15 Temperature 97.3 F L Pulse Rate 59 L 57 L 50 L Respiratory Rate 20 20 21 Blood Pressure 172/73 H 158/74 H 152/70 H Pulse Oximetry 99 97 98 07/23/18 17:30 07/23/18 17:45 07/23/18 17:55 Temperature 97.5 F L Pulse Rate 50 L 61 59 L Respiratory Rate 20 24 22 Blood Pressure 153/73 H 157/81 H 152/74 H Pulse Oximetry 96 95 95 07/23/18 22:32 07/24/18 00:00 07/24/18 04:00 Temperature 97.5 F L 97.9 F 97.4 F L Pulse Rate 74 96 H 60 Respiratory Rate 18 18 16 Blood Pressure 165/77 H 136/62 127/59 L Pulse Oximetry 93 L 91 L 93 L 07/24/18 08:00 Temperature 97.9 F Pulse Rate 62 Respiratory Rate 16 Blood Pressure 125/61 Pulse Oximetry 96 Intake & Output 07/23/18 07/24/18 07/24/18 18:59 06:59 18:59 Intake Total 0 / 0 1000 / 1000 1000 / 1000 Output Total 0 / 0 300 / 300 Balance 0 / 0 700 / 700 1000 / 1000 Intake: IV 1000 / 1000 1000 / 1000 Potassium Chlor 20 mEq/NACL 0. 1000 / 1000 1000 / 1000 45% Inj 1,000 ML @ 84 mls/hr IV .CONT .[id number] [facility] Rx#:[id number] Oral 0 / 0 Output: Urine 0 / 0 Wound Drainage 300 / 300 Right Upper Anterior Back 300 / 300 Other: # Voids 2 3 Date of Last Bowel Movement 07/21/18 07/21/18 Narrative: GENERAL: This is a well-nourished, well-developed patient, in no apparent distress. CARDIOVASCULAR: Regular rate and rhythm RESPIRATORY: Clear to auscultation. Breath sounds equal bilaterally. GASTROINTESTINAL: Abdomen soft, non-tender, nondistended. Normal active bowel sounds. biliary drain in place MUSCULOSKELETAL: Extremities without clubbing, cyanosis, or edema. NEURO: A&O Moves all ext x4 Results Procedures completed during hospitalization: - ERCP with Dr. Doran - Placement of an internal biliary stent with IR Dr. Stover 07/21 - Internal/external biliary drain 07/[address] Gomez - Transheath biopsy of CBD 07/[address] Gomez Labs on day of discharge: Labs from last 24 hours 07/24/18 04:00 Sodium 139 Potassium 4.7 Chloride 106 Carbon Dioxide 23.5 Anion Gap 10 BUN 14 Creatinine 1.08 Estimated GFR 67 L Random Glucose 114 H Calcium 8.4 L Total Bilirubin 3.9 H AST 281 H ALT 506 H Alkaline Phosphatase 643 H Total Protein 6.9 D Albumin 3.1 L - Impressions ITS Impressions Cholangiopancreatography MRI 07/20/18 00:00 CONCLUSION: 1. Severe intrahepatic biliary ductal dilatation, primarily involving the left lobe. There is a focal cutoff of the intrahepatic ducts at the confluence in the laz hepatis region. Gap in the visualized biliary ducts in this region measures approximately 1 cm. This is suspicious for malignancy but no discrete mass is identified. 2. Common duct is normal diameter. No abnormal filling defects within the common duct. Chest CT 07/21/18 00:00 CONCLUSION: 1. Multiple subcentimeter nodular densities in the right lung. Recommend six- month follow-up noncontrast chest CT. 2. Coronary artery calcification. 3. No other acute findings in the chest. GI Procedure 07/21/18 00:00 CONCLUSION: Successful placement of an internal biliary stent. Discharge Plan - Discharge Disposition Patient Disposition: W/Home Health Service - Discharge Condition Condition: Stable - Discharge Details Anticipated Discharge Date: 07/24/18 - Physicians Team Primary Care Provider: Salvador Pedroza Attending Provider: Taiwo Nj Other Providers: Kristan Doran MD ; Adonay River MD
[2018-07-24] MEDS ORDERED: Iohexol 350 MG/ML 50 ML Vial (for Rad Diag) IVCONTRAST ONE (12:56)
--- NOTE | 2018-07-24 13:35 | P.RAD ---
Post Procedure Progress Note - Pre Procedure Diagnosis (1) Dilated intrahepatic bile duct (2) Elevated LFTs (3) Abdominal pain - Post Procedure Diagnosis (1) Dilated intrahepatic bile duct (2) Elevated LFTs (3) Abdominal pain - Procedure Information Procedure Date: 07/24/18 Supervising Radiologist: Rick Gomez MD Estimated blood loss (mL): 2 Anesthesia: Local, Analgesia, Conscious Sedation - Plan of Activity Patient to Unit: ROPU Patient Condition: Good See PACS Report for procedural detail/treatment. Biopsy Fluoroscopy Other Site: Transheath biopsy of CBD Specimen: Core Biopsy Findings: 2 forceps biopsy of abn area of CBD
--- NOTE | 2018-07-24 15:34 | XR ---
EXAM DATE: 07/24/2018 12:00 AM EDT AGE/SEX: 73 years / Male INDICATIONS: Post right lung biopsy. CLINICAL DATA: This is the patient's subsequent encounter. Patient reports that signs and symptoms h ave been present for 4 - 6 days and indicates a pain score of 10/10. MEDICAL/SURGICAL HISTORY: Hypertension. Gout. None. COMPARISON: [facility], CT CHEST W/O CONTRAST, 07/21/2018. . FINDINGS: No pneumothorax. Mild airspace disease at the lung bases likely reflecting atelectasis due to expirat ory technique. The cardiomediastinal contours are unremarkable. Osseous structures are intact. CONCLUSION: 1. No pneumothorax. Electronically signed by: Mahesh Gutierrez MD 07/24/2018 3:33 PM EDT
--- NOTE | 2018-07-24 15:51 | IR ---
EXAM DATE: 07/23/2018 12:00 AM EDT AGE/SEX: 73 years / Male INDICATIONS: Patient with dilated intrahepatic biliary duct in need of biliary drain placement. CLINICAL DATA: This is the patient's initial encounter. Patient reports that signs and symptoms have been present for 2 weeks and indicates a pain score of 0/10. MEDICAL/SURGICAL HISTORY: Hypertension. Hypercholesterolemia. Basal cell carcinoma, Gout Excis ion of basal cell carcinoma COMPARISON: No prior exams available for comparison. FLUORO TIME (min): 12.7 IMAGE SERIES: 3 CONTRAST (cc): 20cc Omnipaque (iohexol) 350 Anesthesia and pain control was provided by the Anesthesia department. DEVICE(S): 8 English biliary drain . . PROCEDURE: 1. Ultrasound guided puncture of the biliary tree. 2. Percutaneous antegrade cholangiogram. 3. Biliary stent placement. 4. Conscious sedation with continuous EKG and oximetry monitoring. The risks, benefits and alternatives to the procedure were explained and verbal and written consent w as obtained. The site was prepped in sterile fashion. Full sterile technique was used, including ca p, mask, sterile gloves and gown and a large sterile sheet. Hand hygiene and 2% chlorhexidine and/or betadine/alcohol prep was utilized per protocol for cutaneous antisepsis. Sterile gel and sterile p robe cover were utilized for ultrasound guidance. The skin and subcutaneous tissues were infiltrated with local anesthetic solution. With ultrasound and fluoroscopic guidance the biliary tree was punctured with a 22 gauge Chiba needle and the biliary tree was opacified. A 22-gauge Chiba needle was used to gain access to the biliary tree and a guidewire was passed into the duodenum. Serial dilatation was performed to accept the pre scribed catheter. Injection of positive contrast demonstrates appropriate position. Injection also de monstrated a high-grade stenosis confluence of the left and right hepatic ducts. Conscious sedation was performed with the prescribed dosages and duration as above in the presence of an independent trained radiology nurse to assist in the monitoring of the patient. EKG and oximetry remained stable throughout the procedure. The patient tolerated the procedure well and there were n o complications. The patient was sent to post anesthesia recovery in stable condition. CONCLUSION: 1. Uncomplicated biliary stent placement as above. Electronically signed by: Rick Gomez MD 07/24/2018 3:50 PM EDT
--- NOTE | 2018-07-24 16:06 | P.PNGI ---
Subjective Interval history: Some pain on deep breathing Physical Exam Vital signs: Vital Signs 07/23/18 16:53 07/23/18 17:00 07/23/18 17:15 Temperature 97.3 F L Pulse Rate 59 L 57 L 50 L Respiratory Rate 20 20 21 Blood Pressure 172/73 H 158/74 H 152/70 H Pulse Oximetry 99 97 98 07/23/18 17:30 07/23/18 17:45 07/23/18 17:55 Temperature 97.5 F L Pulse Rate 50 L 61 59 L Respiratory Rate 20 24 22 Blood Pressure 153/73 H 157/81 H 152/74 H Pulse Oximetry 96 95 95 07/23/18 22:32 07/24/18 00:00 07/24/18 04:00 Temperature 97.5 F L 97.9 F 97.4 F L Pulse Rate 74 96 H 60 Respiratory Rate 18 18 16 Blood Pressure 165/77 H 136/62 127/59 L Pulse Oximetry 93 L 91 L 93 L 07/24/18 08:00 07/24/18 12:50 07/24/18 13:05 Temperature 97.9 F 98.5 F Pulse Rate 62 62 63 Respiratory Rate 16 18 18 Blood Pressure 125/61 155/81 H 167/88 H Pulse Oximetry 96 95 96 07/24/18 14:05 Temperature Pulse Rate 65 Respiratory Rate 18 Blood Pressure 160/86 H Pulse Oximetry 93 L Intake & Output 07/23/18 07/24/18 07/24/18 18:59 06:59 18:59 Intake Total 0 / 0 1000 / 1000 1100 / 1100 Output Total 0 / 0 300 / 300 300 / 300 Balance 0 / 0 700 / 700 800 / 800 Intake: IV 1000 / 1000 1100 / 1100 Potassium Chlor 20 mEq/NACL 0. 1000 / 1000 1000 / 1000 45% Inj 1,000 ML @ 84 mls/hr IV .CONT .[id number] [facility] Rx#:[id number] Levaquin 500 mg Premix Inj 500 100 / 100 mg In 100 ml @ 0 mls/hr IV.SIG .STK-MED ONE Rx#:[id number] Oral 0 / 0 Output: Urine 0 / 0 300 / 300 Wound Drainage 300 / 300 Right Upper Anterior Back 300 / 300 Other: # Voids 2 3 Date of Last Bowel Movement 07/21/18 07/21/18 - Constitutional no acute distress - Routine HEENT Exam Head: Present: normocephalic Eye: Present: EOMI - Routine Respiratory Exam Present: CTA bilaterally - Routine Cardiovascular Exam Present: RRR - Routine Abdominal Exam Present: soft, normoactive bowel sounds Results - Labs CBC & Chem 7: 07/21/18 03:59 07/24/18 04:00 Laboratory Results - last 24 hr 07/24/18 04:00 Sodium 139 Potassium 4.7 Chloride 106 Carbon Dioxide 23.5 Anion Gap 10 BUN 14 Creatinine 1.08 Estimated GFR 67 L Random Glucose 114 H Calcium 8.4 L Total Bilirubin 3.9 H AST 281 H ALT 506 H Alkaline Phosphatase 643 H Total Protein 6.9 D Albumin 3.1 L - Imaging Impressions Biliary Stent Insertion 07/23/18 00:00 CONCLUSION: 1. Uncomplicated biliary stent placement as above. Chest X-Ray 07/24/18 00:00 CONCLUSION: 1. No pneumothorax. - Procedures - ERCP with Dr. Doran - Placement of an internal biliary stent with IR Dr. Stover 07/21 - Internal/external biliary drain 07/[address] Gomez - Transheath biopsy of CBD 07/[address] Gomez Assessment and Plan - Plan Seen and examined, awaiting repeat exam with biopsies by IR today. Explained current situation and differential diagnosis to him and . Monitor labs.
--- NOTE | 2018-07-24 16:29 | P.PNIM ---
Subjective Interval history: Received call from RN that patient is painful after biopsy of CBD procedure today Will cancel DC monitor overnight Physical Exam Vital signs: Vital Signs 07/23/18 16:53 07/23/18 17:00 07/23/18 17:15 Temperature 97.3 F L Pulse Rate 59 L 57 L 50 L Respiratory Rate 20 20 21 Blood Pressure 172/73 H 158/74 H 152/70 H Pulse Oximetry 99 97 98 07/23/18 17:30 07/23/18 17:45 07/23/18 17:55 Temperature 97.5 F L Pulse Rate 50 L 61 59 L Respiratory Rate 20 24 22 Blood Pressure 153/73 H 157/81 H 152/74 H Pulse Oximetry 96 95 95 07/23/18 22:32 07/24/18 00:00 07/24/18 04:00 Temperature 97.5 F L 97.9 F 97.4 F L Pulse Rate 74 96 H 60 Respiratory Rate 18 18 16 Blood Pressure 165/77 H 136/62 127/59 L Pulse Oximetry 93 L 91 L 93 L 07/24/18 08:00 07/24/18 12:50 07/24/18 13:05 Temperature 97.9 F 98.5 F Pulse Rate 62 62 63 Respiratory Rate 16 18 18 Blood Pressure 125/61 155/81 H 167/88 H Pulse Oximetry 96 95 96 07/24/18 14:05 Temperature Pulse Rate 65 Respiratory Rate 18 Blood Pressure 160/86 H Pulse Oximetry 93 L Intake & Output 07/23/18 07/24/18 07/24/18 18:59 06:59 18:59 Intake Total 0 / 0 1000 / 1000 1100 / 1100 Output Total 0 / 0 300 / 300 300 / 300 Balance 0 / 0 700 / 700 800 / 800 Intake: IV 1000 / 1000 1100 / 1100 Potassium Chlor 20 mEq/NACL 0. 1000 / 1000 1000 / 1000 45% Inj 1,000 ML @ 84 mls/hr IV .CONT .[id number] [facility] Rx#:[id number] Levaquin 500 mg Premix Inj 500 100 / 100 mg In 100 ml @ 0 mls/hr IV.SIG .STK-MED ONE Rx#:[id number] Oral 0 / 0 Output: Urine 0 / 0 300 / 300 Wound Drainage 300 / 300 Right Upper Anterior Back 300 / 300 Other: # Voids 2 3 Date of Last Bowel Movement 07/21/18 07/21/18 Narrative: GENERAL: This is a well-nourished, well-developed patient CARDIOVASCULAR: Regular rate and rhythm RESPIRATORY: Clear to auscultation. Breath sounds equal bilaterally. GASTROINTESTINAL: Abdomen soft, non-tender, nondistended. Normal active bowel sounds. biliary drain in place MUSCULOSKELETAL: Extremities without clubbing, cyanosis, or edema. NEURO: A&O Moves all ext x4 Results - Labs CBC & Chem 7: 07/21/18 03:59 07/24/18 04:00 Laboratory Results - last 24 hr 07/24/18 04:00 Sodium 139 Potassium 4.7 Chloride 106 Carbon Dioxide 23.5 Anion Gap 10 BUN 14 Creatinine 1.08 Estimated GFR 67 L Random Glucose 114 H Calcium 8.4 L Total Bilirubin 3.9 H AST 281 H ALT 506 H Alkaline Phosphatase 643 H Total Protein 6.9 D Albumin 3.1 L - Imaging Impressions Biliary Stent Insertion 07/23/18 00:00 CONCLUSION: 1. Uncomplicated biliary stent placement as above. Chest X-Ray 07/24/18 00:00 CONCLUSION: 1. No pneumothorax. - Procedures - ERCP with Dr. Doran - Placement of an internal biliary stent with IR Dr. Stover 07/21 - Internal/external biliary drain 07/[address] Gomez - Transheath biopsy of CBD 07/[address] Gomez Assessment and Plan - Assessment (1) Dilated intrahepatic bile duct Code(s): K83.8 - Other specified diseases of biliary tract Status: Acute Plan: Patient is a pleasant 73-year-old male who has been experiencing abdominal bloating and abdominal pain for the last 2 weeks. Pt had abnormal LFT panel 07/15/18 with Total Bilirubin 1.6, direct bilirubin 0.7 , alk phos 539, AST 421, and ALT 661. This prompted his PCP, Dr. Pedroza, to order CT A/P which was completed at [facility]. Patient denied anorexia or weight loss. Patient denied fever or chills. Due to abnormal CT A/P patient was sent to [facility] for admission. CT A/P - intrahepatic biliary duct dilatation which terminates in the laz hepatis where there is soft tissue fullness. - Further evaluation with MRI recommended to rule out biliary duct neoplasm. - Atrophic left hepatic lobe also noted. MRCP (07/20/18) 1. Severe intrahepatic biliary ductal dilatation, primarily involving the left lobe. There is a focal cutoff of the intrahepatic ducts at the confluence in the laz hepatis region. Gap in the visualized biliary ducts in this region measures approximately 1 cm. This is suspicious for malignancy but no discrete mass is identified. 2. Common duct is normal diameter. No abnormal filling defects within the common duct. - Case d/w Gastroenterology, Dr. Doran 07/21 - S/P ERCP 1. Normal appearing ampulla 2. Small filling defect distal CBD. Large Gall bladder. Intrahepatic ducts not opacified. ? klatskins tumor. Brushings obtaned and 8 fr x 12 cm stent placed in the Left IHD 3. Pancreatic dust normal RECOMMENDATIONS: 1. Antibiotics 2. Liver enzymes 3. Levoquin 500mg x 1 ivp. IF LFTs still elevated consider PTC and R IHD drainage REPEAT EXAM: Return 1 month ERCP - pathology pending, consult to oncology, appreciate input - CT chest and tumor markers ordered - CT chest revealed: 1. Multiple subcentimeter nodular densities in the right lung. Recommend six -month follow-up noncontrast chest CT. 2. Coronary artery calcification. 3. No other acute findings in the chest. - s/p Successful placement of an internal biliary stent with IR Dr. Stover 07/21 - 07/[address] Doran patient may require percutaneous drain - Total bilirubin increased to 6.1, AST 289, ALT 506, Alk Phos 641 - GI placed consult to IR for right intrahepatic drain with biopsy, Patient NPO after midnight plan for drain placement tomorrow - recheck CMP in AM - DVT prophylaxis with SCDs - supportive care. - Protonix 40 mg daily - S/P internal/external biliary drain 07/[address] Gomez - S/P liver biopsy 07/24 with IR - Received call from RN that patient is painful after Transheath biopsy of CBD procedure today - Will cancel DC and continue monitor overnight 2) HTN - continue Prinivil 3) Gout - continue allopurinol (2) Elevated LFTs Code(s): R94.5 - Abnormal results of liver function studies Status: Acute - Attending Attestation Patient examined. Assessment and plan formulated with Jimena Waller PA-C. I agree with the above.
--- NOTE | 2018-07-24 16:48 | P.PNONC ---
Subjective Interval history: Late entry. I saw the patient in morning. He felt better after the biliary drain placement. He is n.p.o. and is going for biopsy today. He denies any chest pain or shortness of breath. He has no nausea or vomiting. Objective Vital Signs/Intake & Output: Vital Signs 07/23/18 16:53 07/23/18 17:00 07/23/18 17:15 Temperature 97.3 F L Pulse Rate 59 L 57 L 50 L Respiratory Rate 20 20 21 Blood Pressure 172/73 H 158/74 H 152/70 H Pulse Oximetry 99 97 98 07/23/18 17:30 07/23/18 17:45 07/23/18 17:55 Temperature 97.5 F L Pulse Rate 50 L 61 59 L Respiratory Rate 20 24 22 Blood Pressure 153/73 H 157/81 H 152/74 H Pulse Oximetry 96 95 95 07/23/18 22:32 07/24/18 00:00 07/24/18 04:00 Temperature 97.5 F L 97.9 F 97.4 F L Pulse Rate 74 96 H 60 Respiratory Rate 18 18 16 Blood Pressure 165/77 H 136/62 127/59 L Pulse Oximetry 93 L 91 L 93 L 07/24/18 08:00 07/24/18 12:50 07/24/18 13:05 Temperature 97.9 F 98.5 F Pulse Rate 62 62 63 Respiratory Rate 16 18 18 Blood Pressure 125/61 155/81 H 167/88 H Pulse Oximetry 96 95 96 07/24/18 14:05 Temperature Pulse Rate 65 Respiratory Rate 18 Blood Pressure 160/86 H Pulse Oximetry 93 L Intake & Output 07/23/18 07/24/18 07/24/18 18:59 06:59 18:59 Intake Total 0 / 0 1000 / 1000 1100 / 1100 Output Total 0 / 0 300 / 300 300 / 300 Balance 0 / 0 700 / 700 800 / 800 Intake: IV 1000 / 1000 1100 / 1100 Potassium Chlor 20 mEq/NACL 0. 1000 / 1000 1000 / 1000 45% Inj 1,000 ML @ 84 mls/hr IV .CONT .[id number] [facility] Rx#:[id number] Levaquin 500 mg Premix Inj 500 100 / 100 mg In 100 ml @ 0 mls/hr IV.SIG .STK-MED ONE Rx#:[id number] Oral 0 / 0 Output: Urine 0 / 0 300 / 300 Wound Drainage 300 / 300 Right Upper Anterior Back 300 / 300 Other: # Voids 2 3 Date of Last Bowel Movement 07/21/18 07/21/18 Result Diagrams: 07/21/18 03:59 07/24/18 04:00 Laboratory Results: Laboratory Results - last 24 hr 07/24/18 04:00 Sodium 139 Potassium 4.7 Chloride 106 Carbon Dioxide 23.5 Anion Gap 10 BUN 14 Creatinine 1.08 Estimated GFR 67 L Random Glucose 114 H Calcium 8.4 L Total Bilirubin 3.9 H AST 281 H ALT 506 H Alkaline Phosphatase 643 H Total Protein 6.9 D Albumin 3.1 L Imaging Studies: Impressions Biliary Stent Insertion 07/23/18 00:00 CONCLUSION: 1. Uncomplicated biliary stent placement as above. Chest X-Ray 07/24/18 00:00 CONCLUSION: 1. No pneumothorax. Medications: Active Medications Generic Name Dose Route Start Last Admin Trade Name Freq PRN Reason Stop Dose Admin Acetaminophen 650 mg 07/20/18 18:32 07/22/18 03:08 Tylenol PO 650 mg Q4H PRN Administration Temp > 100.4 Allopurinol 100 mg 07/21/18 09:00 07/24/18 09:12 Zyloprim PO 100 mg DAILY WOJCIECH Administration Sodium Chloride 1,000 mls @ 100 mls/hr 07/20/18 18:45 07/24/18 02:01 Ns Inj IV.CONT Not Given .Q10H WOJCIECH Potassium Chloride/Sodium Chloride 1,000 mls @ 84 mls/hr 07/21/18 08:15 07/24 09:26 Potassium Chlor 20 Meq/Nacl 0.45% Inj IV.CONT 84 mls/hr .[id number] WOJCIECH Administration Lisinopril 40 mg 07/21/18 09:00 07/24/18 09:12 Prinivil PO 40 mg DAILY WOJCIECH Administration Pantoprazole Sodium 40 mg 07/22/18 15:00 07/24/18 09:12 Protonix Inj IV.PUSH 40 mg DAILY WOJCIECH Administration Senna/Docusate Sodium 1 tab 07/20/18 21:00 07/24/18 09:11 Rosalina-Colace PO 1 tab BID WOJCIECH Administration Tramadol HCl 50 mg 07/22/18 14:42 07/24/18 16:26 Ultram PO 50 mg Q6H PRN Administration pain 1-10. Objective Remarks: GENERAL: Well-nourished, well-developed patient. SKIN: Warm and dry. HEAD: Normocephalic. EYES: No scleral icterus. No injection or drainage. NECK: Supple, trachea midline. No JVD or lymphadenopathy. LYMPHATIC: No adenopathy. CARDIOVASCULAR: Regular rate and rhythm without murmurs. RESPIRATORY: Breath sounds equal bilaterally. No accessory muscle use. GASTROINTESTINAL: Abdomen soft, slightly tender right upper quadrant but improved. Biliary drain noted. nondistended. EXTREMITIES: No cyanosis, or edema. MUSCULOSKELETAL: Adequate muscle tone. NEUROLOGICAL: No obvious focal deficit. Awake, alert, and oriented x3. PSYCHIATRIC: Appropriate mood and affect; insight and judgment normal. Assessment/Plan (1) Dilated intrahepatic bile duct Code(s): K83.8 - Other specified diseases of biliary tract Status: Acute (2) Elevated LFTs Code(s): R94.5 - Abnormal results of liver function studies Status: Acute (3) Abdominal pain Code(s): R10.9 - Unspecified abdominal pain Status: Acute - Plan Mr. De Los Santos is a pleasant 73-year-old male patient, who presented to the hospital on the direction of his PCP following routine lab work revealed elevated liver enzymes and a CT scan which showed intrahepatic biliary dilation. Oncology was consulted to render opinion in regards to possible Klatskin tumor. Plan: 1. Status post ERCP with biliary stent placement on 07/21/2018. Brushing was obtained and cytology inconclusive, there is a cluster of suspicious cells for neoplasm. He had biliary drain placed yesterday. He is going to have biopsy of common bile duct today. Tumor marker CA 19-9 was elevated at 152. Alpha- fetoprotein is normal. CEA is normal at 1.1. Clinical suspicion for Klatskin tumor. He can be discharged from oncology standpoint after the biopsy if he is stable. 2. Elevated liver enzymes. Total bilirubin persistently elevated. Alk phosphate, ALT and AST have all elevated. Bilirubin has trended down after biliary drain placement. 3. Patient's questions were answered. (3) Abdominal pain Qualifiers: Abdominal location: unspecified location Qualified Code(s): R10.9 - Unspecified abdominal pain
[2018-07-24] MEDS ORDERED: HYDROmorphone PF Inj 2 MG/ML Vial IV.PUSH PRN (17:24)
[2018-07-25] MEDS: Pantoprazole Inj 40 MG Vial IV.PUSH SCH (09:10)
[2018-07-25] MEDS: Senna/Docusate Sodium 8.6/50 MG Tablet PO SCH (09:10)
[2018-07-25] MEDS: Allopurinol 100 MG Tablet PO SCH (09:11)
[2018-07-25] MEDS: Lisinopril 20 MG Tablet PO SCH (09:11)
[2018-07-25] MEDS: KCL 20 mEq/NACL 0.45% Inj 1,000 ML IV.CONT SCH (09:11)
[2018-07-25] MEDS: Sod Chloride 0.9% Inj 1,000 ML IV.CONT SCH (09:11)
[2018-07-25 12:49] VITALS: BP 115/61; PULSE 72; RESP 19; TEMP 97.7; O2SAT 95
--- NOTE | 2018-07-28 15:49 | IR ---
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 CLINICAL DATA: This is the patient's subsequent encounter. Patient reports that signs and symptoms h ave been present for 4 - 6 days and indicates a pain score of 0/10. MEDICAL/SURGICAL HISTORY: . HTN, Gout, Basal cell carcinoma, Hyperlipidemia. . Biliary stent p lacement. COMPARISON: No prior exams available for comparison. FLUORO TIME (min): 7.34 IMAGE SERIES: 4 SEDATION TIME (min): 45 CONTRAST (cc): 15 cc Omnipaque (iohexol) 350 MEDICATION(S): 5 mg midazolam (Versed) IV 250 mcg fentanyl (Sublimaze) IV 500 mg Levaquin Intra-procedural antibiotics were given as prescribed above. DEVICE(S): 8 Ukrainian biliary drain 35cm . . PROCEDURE: 1. Cholangiogram through existing catheter. 2. Biliary stent change. 3. Forceps biopsy of the common hepatic duct 4. Conscious sedation with continuous EKG and oximetry monitoring. The risks, benefits and alternatives to the procedure were explained and verbal and written consent w as obtained. The site was prepped in sterile fashion. Full sterile technique was used, including ca p, mask, sterile gloves and gown and a large sterile sheet. Hand hygiene and 2% chlorhexidine and/or betadine/alcohol prep was utilized per protocol for cutaneous antisepsis. The skin and subcutaneous tissues were infiltrated with local anesthetic solution. The internal/external drain placed one day earlier was injected confirming appropriate position and d elineating the area of high-grade stenosis at the confluence of the left and right hepatic ducts. Ove r a wire, the catheter was removed and replaced with an 8 Ukrainian side port sheath. Contrast injection again confirmed the area of narrowing at the confluence of the left and right ducts as well as the p roximal common hepatic duct. Under fluoroscopic guidance, a large biopsy forceps was advanced through the sheath and used to obtai n tissue from the proximal area of ductal stenosis/occlusion. A series of 2 samples were obtained and placed in formalin for laboratory analysis. Over the wire, a new 8 Ukrainian internal/external drain was placed. Position was confirmed with positiv e contrast. Conscious sedation was performed with the prescribed dosages and duration as above in the presence of an independent trained radiology nurse to assist in the monitoring of the patient. EKG and oximetry remained stable throughout the procedure. The patient tolerated the procedure well and there were n o complications. The patient was sent to post anesthesia recovery in stable condition. CONCLUSION: 1. Uncomplicated biliary catheter change. 2. Forceps biopsy of the abnormally appearing common hepatic duct. Electronically signed by: Rick Gomez MD 07/28/2018 3:47 PM EDT
== END 2018-07-25 15:10 | disposition home health service (06) ==
LOC: NEPE 14:35 → NEDA 17:51 → N07 19:59
PROVIDERS: ADMIT Hospitalist; ATTEND Hospitalist